=== PATIENT | female | born 1950 | race Hispanic/Latino ===

== ENCOUNTER 2023-05-16 20:45 | Emergency (ER) | payer OTHER ==
--- OUTSIDE RECORDS SUMMARY | 2023-05-16 20:50 | XMS REPORT | Continuity of Care Document ---
:1950 Author Organization [facility] t Address [address] [place] [address] Care Team Providers Name Role Phone Charli CHAVEZ, Bernard Primary Care Physician Vianney Carias RN Attending Clinician Unavailable Nayana Rolon MD Attending Clinician [phone] [facility]ending Clinician Unavailable Raj CHAVEZ, Tessy Attending Clinician Bernard Augustin MD Attending Clinician Miguelito De La Fuente MD, Isidro Alvarado Attending Clinician [phone] Benjamin Mensah MD Attending Clinician Znea Rojas MD Attending Clinician Hudson Mariscal DO Attending Clinician [phone] Viv Lucio Attending Clinician Unavailable Radha Desai DO Attending Clinician [phone] ANSHUL ABRAHAM Attending Clinician Unavailable Steph Godfrey MD Attending Clinician [phone] Starr Mckeon Attending Clinician Unavailable Adrianna Fitzgerald MA Attending Clinician Unavailable Robert MARCUS, Ceci Lorenzo Attending Clinician [phone] Dave MURDOCK, Lili Gifford Attending Clinician Unavailable NORMA NAJERA Attending Clinician Unavailable LEATHA PENA Attending Clinician Unavailable MD BERNARD AUGUSTIN Attending Clinician Unavailable BENJAMIN MENSAH Admitting Clinician Unavailable LEATHA PENA Admitting Clinician Unavailable MD BERNARD AUGUSTIN Admitting Clinician Unavailable Payers Payer Name Policy Type Policy Number Effective Date Expiration Date S ource Problems Condition Condition Condition Status Onset Resolution Last Treating Co mments Source Name Details Category Date Date Treatment Clinician Date Pneumonia Pneumonia Disease Active [facility] due to due to 03-31 COVID-19 COVID-19 00:00: Hospit a virus virus 00 l COVID-19 COVID-19 Disease Active [facility] virus virus 03-31 detected detected 00:00: Hospit a 00 l Late onset Late onset Disease Active M ethodi asthma asthma [address] [facility] 00:00: Hospita 00 l Acquired Acquired Disease Active [facility] hypothyroi hypothyroi 1-15 st dism dism 00:00: Hospita 00 l Allergic Allergic Disease Active [facility] rhinitis rhinitis 1-15 st 00:00: Hospita 00 l Diabetes Diabetes Disease Active [facility] mellitus mellitus 2-16 st 00:00: Hospita 00 l Essential Essential Disease Active Met [facility] hypertensi hypertensi 2-16 st on on 00:00: Hospita 00 l Allergies, Adverse Reactions, Alerts This patient has no known allergies or adverse reactions. Family History Family Member Diagnosis Comments Start Date Stop Date Source Natural brother Prostate cancer [facility] Natural father Kidney cancer [facility] Natural mother Alzheimer's disease [facility] Social History Social Habit Start Date Stop Date Quantity Comments Source History SDOH [facility] Std Drinks Hospit al History SDOH [facility] Binge [facility] History SDOH [facility] Comment Hospital Exposure to Not sure [facility] SARS-CoV-2 (event) Hospit al [facility] Alcohol intake 2023-03-08 2023-03-08 Lifetime [facility] 00:00:00 00:00:00 non-drinker Hospital (finding) History of Social 2023-03-08 2023-03-[address] function 00:00:00 00:00:00 Hospital Tobacco use and 2022-06-09 2022-06-09 Smokeless [facility] exposure 00:00:00 00:00:00 tobacco non-user Hospital History SDOH 2020-10-28 2020-10-28 1 [facility] Alcohol Frequency 00:00:00 00:00:00 Hospita l Sex Assigned At [birth year] [facility] Smoking Status Start Date Stop Date Source Never smoked tobacco [facility] Medications Ordered Filled Start Stop Current Ordering Indication Dosage Frequency Signature Comments Components Source Medication Medication Date Date Medication? Clinician (SIG) Name Name nitrofurant 2022- Yes [id number] 100mg Q.5D Take 1 [facility] oin, 05-12 08-[address] macrocrysta 00:00: 04:59 (100 mg Ho [facility] l-monohydra 00 :00 total) by l te, mouth 2 (Macrobid) (two) 100 MG times a capsule day for 7 days. erythromyci Yes Apply a Met hodi n 0.5% 04-[address] (ILOTYCIN) 00:00: ribbon to [facility] 5 mg/gram 00 the l (0.5 %) stiches/wo ophthalmic und 4 ointment times a day for 7 days then stop simvastatin Yes [id number] TAKE 1 [facility] (ZOCOR) 40 7-20 TABLET(40 st mg tablet 00:00: MG) BY Hospit a 00 MOUTH l DAILY metoprolol Yes [id number] TAKE 1 [facility] succinate 7-13 TABLET(50 st XL 00:00: MG) BY Hospita (TOPROL-XL) 00 MOUTH l 50 mg 24 hr DAILY tablet levothyroxi Yes [id number] TAKE 1 [facility] ne 7-13 TABLET(75 st (SYNTHROID) 00:00: MCG) BY Hos kailyn 75 mcg 00 MOUTH l tablet DAILY montelukast Yes [id number] TAKE 1 [facility] (SINGULAIR) 7-10 TABLET(10 st 10 mg 00:00: MG) BY Hospita tablet 00 MOUTH l EVERY NIGHT nitrofurant 2022- No 100mg Q.5D Take 1 Me [facility]odi oin, 6 06-[address] macrocrysta 00:00: 04:59 (100 mg [facility] l-monohydra 00 :00 total) by l te, mouth 2 (Macrobid) (two) 100 MG times a capsule day for 5 days. fluconazole 0 2023- No 150mg Take 1 Me [facility] (Diflucan) 6-18 06-[address] 150 MG 00:00: 04:59 (150 mg Hospita tablet 00 :00 total) by l mouth once for 1 dose. loratadine 0 Yes 10mg QD Take 1 [facility] di (CLARITIN) 6-12 tablet (10 st 10 mg 11:35: mg total) Hospita tablet 07 by mouth l daily. flash 0 Yes [facility] glucose 6-12 st scanning 11:35: Hospita reader 06 l (FreeStyle Aldair 14 Day Mckee) misc flash 0 Yes [facility] glucose 6-12 st sensor 11:35: Hospita (FREESTYLE 06 l ALDAIR 14 DAY SENSOR MISC) estradioL Yes [id number] .5g Q.[id number] Insert 0.5 [facility] (Estrace) 6-[id number] g into the [address] 0.01 % (0.1 00:00: 3W vagina 3 Ho spita mg/gram) 00 (three l vaginal times a cream week at 2100. Insert 0.5 g into vagina nightly x 1 wk; after one week use 3x weekly at night gabapentin 0 202- Yes 300mg Q.[id number] Take 3 [facility] (Neurontin) 5-31 05-[id number] 100 mg 00:00: 04:59 3D (300 mg Hospita capsule 00 :00 total) by l mouth 3 (three) times a day. DULoxetine Yes TAKE 1 [facility] di (CYMBALTA) 5-24 CAPSULE(60 st 60 MG 00:00: MG) BY Hospita capsule 00 MOUTH l DAILY metFORMIN 0 Yes [id number] TAKE 1 M [facility]i (GLUCOPHAGE 5-15 TABLET(100 st ) 1,000 mg 00:00: 0 MG) BY Hos kailyn tablet 00 MOUTH l TWICE DAILY WITH MEALS lisinopriL 0 Yes [id number] TAKE 1 Me [facility] (PRINIVIL) 5-04 TABLET(40 st 40 mg 00:00: [facility]ILY levothyroxi 2022- No [id number] TAKE 1 [facility] ne 01-13- TABLET(75 st (SYNTHROID) 00:00: 00:00 MCG) BY [facility] spita 75 mcg 00 :00 MOUTH l tablet DAILY simvastatin 2022- No [id number] TAKE 1 [facility] (ZOCOR) 40 01-04 TABLET(40 st mg tablet 00:00: 00:00 MG) BY [facility] ta 00 :00 MOUTH l DAILY metoprolol 2022- No [id number] TAKE 1 [facility] succinate 12-05 TABLET(50 st XL 00:00: 00:00 [facility] ([facility] 00 :00 MOUTH l 50 mg 24 hr DAILY tablet DULoxetine 2022- No TAKE 1 Meth gricelda (CYMBALTA) 12-05-24 CAPSULE(60 st 60 MG 00:00: 00:00 MG) BY [facility] capsule 00 :00 MOUTH l DAILY empaglifloz Yes [id number] 25mg QD Take 1 [facility] in 12-02 tablet (25 st (Jardiance) 00:00: mg total) H ospita 25 mg 00 by mouth l tablet daily. dulaglutide Yes [id number] 3mg Q7D Inject 0.5 [facility] (Trulicity) 3-09 mL ([address] 3 mg/0.5 mL 00:00: total) Hosp ilan subcutaneou 00 under the l s pen skin once a week. montelukast 2022- No [id number] 10mg QD Take 1 [facility] (Singulair) 12-02-10 tablet (10 s t 10 mg 00:00: 00:00 mg total) Hospit a tablet 00 :00 by mouth l nightly. ketoconazol 2022- No [id number] QD Apply Methodi e (NIZORAL) 12-[address] 2 % cream 00:00: 04:59 daily for Ho spita 00 :00 28 days. l metFORMIN 2022- No [id number] TAKE 1 [facility] (GLUCOPHAGE 2-15 05-15 TABLET(100 s t ) 1,000 mg 00:00: 00:00 0 MG) BY Ho spita tablet 00 :00 MOUTH l TWICE DAILY WITH MEALS lisinopriL 2022- No [id number] TAKE 1 M [facility]i (PRINIVIL) 11-0904 TABLET(40 st 40 mg 00:00: 00:00 MG) BY Hospita tablet 00 :00 MOUTH l DAILY Jardiance 2022- No [id number] TAKE 1 [facility] 10 mg 11-09 TABLET(10 st tablet 00:00: 00:00 MG) BY Hospita tablet 00 :00 MOUTH l DAILY nitrofurant 2022- No 100mg Q.5D Take 1 Me thodi oin, 11-[address] macrocrysta 00:00: 05:59 (100 mg Ho spita l-monohydra 00 :00 total) by l te, mouth 2 (Macrobid) (two) 100 MG times a capsule day for 7 days. levothyroxi 2022- No [id number] TAKE 1 [facility] ne 10-10-20 TABLET(75 st (SYNTHROID) 00:00: 00:00 MCG) BY Ho spita 75 mcg 00 :00 MOUTH l tablet DAILY simvastatin 2022- No [id number] TAKE 1 [facility] (ZOCOR) 40 10-10-11 TABLET(40 st mg tablet 00:00: 00:00 MG) BY [facility] ta 00 :00 MOUTH l DAILY dulaglutide 2022- No [id number] INJECT [facility] (Trulicity) 10-10 3MG(0.5ML) s t 3 mg/0.5 mL 00:00: 00:00 UNDER THE [facility] :00 SKIN ONCE l s pen A WEEK metoprolol 2021-09- No [id number] TAKE 1 [facility] succinate 11-09 TABLET(50 st XL 00:00: 00:00 MG) [facility] ([facility]OL[facility]) 00 :00 MOUTH l 50 mg 24 hr DAILY tablet DULoxetine 2021-09- No TAKE 1 Meth gricelda (CYMBALTA) 2-14 03-12 CAPSULE(60 st 60 MG 00:00: 00:00 MG) BY Hospita capsule 00 :00 MOUTH l DAILY levothyroxi 2021-09- No [id number] TAKE 1 [facility] ne 10-2415 TABLET(75 st (SYNTHROID) 00:00: 00:00 MCG) BY Ho spita 75 mcg 00 :00 MOUTH l tablet DAILY Jardiance 2021-09- No [id number] TAKE 1 [facility] 10 mg 10-09 TABLET(10 st tablet 00:00: 00:00 MG) BY Hospita tablet 00 :00 MOUTH l DAILY lisinopriL 2021-09- No [id number] TAKE 1 M ethodi (PRINIVIL) 10-09 TABLET(40 st 40 mg 00:00: 00:00 MG) BY Hospita tablet 00 :00 MOUTH l DAILY metFORMIN 2021-09- No [id number] TAKE 1 [facility] (GLUCOPHAGE 09-2815 TABLET(100 s t ) 1,000 mg 00:00: 00:00 0 MG) BY spita tablet 00 :00 MOUTH l TWICE DAILY WITH MEALS Trulicity 2021-09- No Methodi 1.5 mg/0.5 0-27 03- st mL 00:00: 00:00 Hospita subcutaneou 00 :00 l s pen simvastatin 2021-09- No [id number] TAKE 1 [facility] (ZOCOR) 40 14 15 TABLET(40 st mg tablet 00:00: 00:00 MG) BY [facility] ta 00 :00 MOUTH l DAILY DULoxetine 2021- No TAKE 1 Meth gricelda (CYMBALTA) 06-1014 CAPSULE(60 st 60 MG 00:00: 00:00 MG) BY Hospita capsule 00 :00 MOUTH l DAILY metFORMIN 2021- No [id number] 1000mg QD Take 1 [facility] (GLUCOPHAGE 06-09- tablet st ) 1,000 mg 00:00: 00:00 (1,000 mg H ospita tablet 00 :00 total) by l mouth daily with breakfast. lisinopriL 2021- No [id number] TAKE 1 M ethodi (PRINIVIL) 8-10 11-14 TABLET(40 st 40 mg 00:00: 00:00 MG) BY Hospita tablet 00 :00 MOUTH l DAILY Jardiance 2021- No [id number] TAKE 1 [facility] 10 mg 8-10 11-14 TABLET(10 st tablet 00:00: 00:00 MG) BY Hospita tablet 00 :00 MOUTH l DAILY simvastatin 2021- No [id number] TAKE 1 [facility] (ZOCOR) 40 7-05 10-14 TABLET(40 st mg tablet 00:00: 00:00 MG) BY Hospi ta 00 :00 MOUTH l DAILY ipratropium 2022- No 2{spray Q12H 2 sprays [facility] (ATROVENT) 03-25 } into each st 21 mcg 00:00: 04:59 nostril Hospita (0.03 %) 00 :00 every 12 l nasal spray (twelve) hours. azelastine 2022- No [id number] 1{spray Q.5D 1 spray [facility] (ASTELIN) 03-08 } into each st 137 mcg 00:00: 04:59 nostril 2 Hosp ilan (0.1 %) 00 :00 (two) l nasal spray times a day. Use in each nostril as directed montelukast 2022- No [id number] 10mg QD Take 1 [facility] (Singulair) 03-0809 tablet (10 s t 10 mg 00:00: 00:00 mg total) Hospit a tablet 00 :00 by mouth l nightly. metoprolol 2021- No [id number] TAKE 1 [facility] succinate 02-24 TABLET(50 st XL 00:00: 00:00 MG) BY Hospita (TOPROL-XL) 00 :00 MOUTH l 50 mg 24 hr DAILY tablet DULoxetine 2021- No TAKE 1 Meth gricelda (CYMBALTA) 02-24 CAPSULE(60 st 60 MG 00:00: 00:00 MG) BY Hospita capsule 00 :00 MOUTH l DAILY triamcinolo 2021- No Metho di ne 02-19 st (KENALOG) 00:00: 00:00 Hospita 0.1 % cream 00 :00 l levothyroxi 2021- No [id number] TAKE 1 [facility] ne 5-18 11-29 TABLET(75 st (SYNTHROID) 00:00: 00:00 MCG) BY Ho spita 75 mcg 00 :00 MOUTH l tablet DAILY baclofen 5 2021- No [id number] 5mg Q.[id number] Take 1 [facility] mg tablet 12-28 [id number] tablet (5 st 00:00: 00:00 3D mg total) Hospita 00 :00 by mouth 3 l (three) times a day as needed (muscle spasms). metFORMIN 2021- No [id number] TAKE 1 [facility] (GLUCOPHAGE 11-05 TABLET(100 s t ) 1,000 mg 00:00: 00:00 0 MG) BY Ho spita tablet 00 :00 MOUTH l TWICE DAILY WITH MEALS olopatadine 2021- No [id number] 1[drp] QD Apply 1 [facility] 0.2 % drops 11-[id number] 00:00: 00:00 eye daily. Hospit a 00 :00 l albuterol Yes [id number] 2{puff} Q4H Inhale 2 [facility] (PROAIR 2-[address] HFA) 90 00:00: every 4 Hospita mcg/actuati 00 (four) l on inhaler hours as needed for wheezing or shortness of breath. simvastatin Yes [id number] TAKE 1 [facility] (ZOCOR) 40 1-17 TABLET(40 st mg tablet 00:00: MG) BY Hospit a 00 MOUTH l DAILY Jardiance Yes [id number] TAKE 1 M [facility]i 10 mg 1-17 TABLET(10 st tablet 00:00: MG) BY Hospita tablet 00 MOUTH l DAILY lisinopriL 2020-09 Yes [id number] 40mg QD Take 1 Me thodi (PRINIVIL) 2-27 tablet (40 st 40 mg 00:00: mg total) Hospita tablet 00 by mouth l daily. loratadine 2020-09 Yes 10mg QD Take 10 mg M ethodi (CLARITIN) 2-[address] 10 mg 10:52: daily. Hospita tablet 37 l flash 2020-09 Yes [facility] glucose 2-07 st scanning 10:52: Hospita reader 37 l (FreeStyle Aldair 14 Day Mckee) misc flash 2020-09 Yes [facility] glucose 2-07 st sensor 10:52: Hospita (FREESTYLE 37 l ALDAIR 14 DAY SENSOR MIS) amoxicillin 2020-09 Yes Method i -pot 1-30 st clavulanate 00:00: Hospit a (AUGMENTIN) 00 l 875-125 mg per tablet metoprolol 2020-09 Yes [id number] TAKE 1 [facility] succinate 1-17 TABLET(50 st XL 00:00: MG) BY Hospita (TOPROL-XL) 00 MOUTH l 50 mg 24 hr DAILY tablet DULoxetine 2020-09 Yes TAKE 1 Metho di (CYMBALTA) 1-16 CAPSULE(60 st 60 MG 00:00: MG) BY Hospita capsule 00 MOUTH l DAILY levothyroxi 2020-09 Yes [id number] TAKE 1 [facility] ne 1-16 TABLET(75 st (SYNTHROID) 00:00: MCG) BY Hos kailyn 75 mcg 00 MOUTH l tablet DAILY dulaglutide 2020-09 Yes [id number] 3mg Q7D Inject 0.5 [facility] (TRULICITY) 1-09 mL ([address] 3 mg/0.5 mL 00:00: total) Hosp ilan subcutaneou 00 under the l s pen skin once a week. dulaglutide 2020-09- No [id number] 3mg Q7D Inject 0.5 [facility] (TRULICITY) 1-09 01-15 mL ([address] 3 mg/0.5 mL 00:00: 00:00 total) Hos kailyn subcutaneou 00 :00 under the l s pen skin once a week. Trulicity 2020-09- No [id number] INJECT 1.5 [facility] 1.5 mg/0.5 -02 11-[address] mL 00:00: 00:00 THE SKIN Hospita subcutaneou 00 :00 ONCE A l s pen WEEK ON TUESDAYS Jardiance 2020-09 202- No [id number] TAKE 1 [facility] 10 mg 0-17 01-17 TABLET(10 st tablet 00:00: 00:00 MG) BY Hospita tablet 00 :00 MOUTH l DAILY DULoxetine 2020- No TAKE 1 Meth gricelda (CYMBALTA) 813 11-16 CAPSULE(60 st 60 MG 00:00: 00:00 MG) BY Hospita capsule 00 :00 MOUTH l DAILY metFORMIN Yes [id number] TAKE 1 M ethodi (GLUCOPHAGE 8-04 TABLET(100 st ) 1,000 mg 00:00: 0 MG) BY Hos kailyn tablet 00 MOUTH l TWICE DAILY WITH MEALS Trulicity 2020- No [id number] INJECT 1.5 [facility] 1.5 mg/0.5 8- 11-[address] mL 00:00: 00:00 THE SKIN Hospita subcutaneou 00 :00 ONCE A l s pen WEEK Tuesdays Jardiance 2020- No [id number] TAKE 1 [facility] 10 mg 04-1317 TABLET(10 st tablet 00:00: 00:00 MG) BY Hospita tablet 00 :00 MOUTH l DAILY simvastatin 2021- No [id number] TAKE 1 [facility] (ZOCOR) 40 04-12-17 TABLET(40 st mg tablet 00:00: 00:00 MG) BY Hospi ta 00 :00 MOUTH l DAILY Trulicity 2020- No [id number] INJECT 1.5 [facility] 1.5 mg/0.5 04-03 08-[address] mL 00:00: 00:00 THE SKIN Hospita subcutaneou 00 :00 ONCE A l s pen WEEK Tuesdays lisinopriL 2020- No [id number] TAKE 1 M ethodi (PRINIVIL) 02-11-27 TABLET(40 st 40 mg 00:00: 00:00 MG) BY Hospita tablet 00 :00 MOUTH l DAILY metFORMIN 2020- No [id number] TAKE 1 [facility] (GLUCOPHAGE 5- 08-04 TABLET(100 s t ) 1,000 mg 00:00: 00:00 0 MG) BY Ho spita tablet 00 :00 MOUTH l TWICE DAILY WITH MEALS betamethaso 2020- No [id number] Q.5D Apply Methodi ne 01-19 05-[address] dipropionat 00:00: 04:59 2 (two) Ho spita e 00 :00 times a l (DIPROLENE) day for 14 0.05 % days. cream levothyroxi 2020- No [id number] 75ug QD Take 1 [facility] ne 14 11-16 tablet (75 st (SYNTHROID) 00:00: 00:00 mcg total) Hospita 75 mcg 00 :00 by mouth l tablet daily. ketoconazol 2020- No [id number] QD Apply Methodi e (NIZORAL) 12-29 04-[address] 2 % cream 00:00: 04:59 daily for Ho spita 00 :00 14 days. l triamcinolo 2020- No [id number] Q.5D Apply Methodi ne 12-29-[address] (KENALOG) 00:00: 04:59 2 (two) Hosp ilan 0.1 % cream 00 :00 times a l day for 14 days. Apply to hands fluticasone 2020- No [id number] 100ug QD 2 sprays [facility] propionate 12-23-30 ([address] (FLONASE) 00:00: 04:59 total) by Ho spita 50 00 :00 Each Nare l mcg/actuati route on nasal daily for spray 30 days. amoxicillin 2020- No [id number] 1{tbl} Q.5D Take 1 [facility] -pot -23 01-[address] clavulanate 00:00: 04:59 mouth 2 Ho spita (Augmentin) 00 :00 (two) l 875-125 mg times a per tablet day for 5 days. metoprolol 2020- No [id number] 50mg QD Take 1 [facility] succinate 10-06-17 tablet (50 st XL 00:00: 00:00 mg total) Hospita (TOPROL-XL) 00 :00 by mouth l 50 mg 24 hr daily. tablet DULoxetine 2020- No 60mg QD Take 1 Meth gricelda (CYMBALTA) 10-06 08-[address] 60 MG 00:00: 00:00 (60 mg Hospita capsule 00 :00 total) by l mouth daily. empaglifloz 2020- No [id number] 10mg QD Take 1 [facility] in 10 mg 10-06 tablet (10 st tablet 00:00: 00:00 mg total) Hospi ta tablet 00 :00 by mouth l daily. simvastatin 2020- No [id number] 40mg QD Take 1 [facility] (ZOCOR) 40 10-0618 tablet (40 st mg tablet 00:00: 00:00 mg total) Ho spita 00 :00 by mouth l daily. dulaglutide 2020- No [id number] 1.5mg Q7D Inject 1.5 [facility] (Trulicity) 10-06 07-[address] 1.5 mg/0.5 00:00: 00:00 the skin Ho spita mL pen 00 :00 once a l injector week. Tuesday lisinopriL 2020- No [id number] 40mg QD Take 1 M [facility]i (PRINIVIL) 10-06 tablet (40 st 40 mg 00:00: 00:00 mg total) Hospit a tablet 00 :00 by mouth l daily. levothyroxi 2020- No [id number] 75ug QD Take 1 Method[facility] ne 10-0614 tablet (75 st (SYNTHROID) 00:00: 00:00 mcg total) Hospita 75 mcg 00 :00 by mouth l tablet daily. metFORMIN 2020- No [id number] TAKE 1 [facility] (GLUCOPHAGE 10-05 05-02 TABLET(100 s t ) 1,000 mg 00:00: 00:00 0 MG) BY Ho spita tablet 00 :00 MOUTH l TWICE DAILY WITH MEALS keTOROlac 2019-09- No Instill 1 Me thodi (ACULAR LS) 2 04-[address] 0.4 % 00:00: 00:00 the right Hospit a ophthalmic 00 :00 eye 2 l solution times daily and taper as directed by physician. triamcinolo 2020- No Q.5D Apply Meth gricelda ne 05-15 04-[address] (KENALOG) 00:00: 00:00 2 (two) Hosp ilan 0.1 % cream 00 :00 times a l day. Immunizations Ordered Immunization Filled Immunization Date Status Commen ts Source Name Name Zoster 2022-10-07 Completed [facility] [place] M[place] 2022-07-07 Completed [facility] BIVALENT BOOSTER 00:00:00 Hospital VACCINATION FLUZONE HIGH-DOSE PF 2022-06-09 [facility]22-04-09 Completed Met [facility] VACCINATION 00:00:00 Hospital Pneumococcal 2022-04-09 Completed [facility] 20-valent Conjugate 00:00:00 Hospi olivia Vaccine [facility] COVID-19 MRNA 2021-08-12 Completed Met [facility] VACCINATION 00:00:00 Hospital FLUZONE HIGH-DOSE PF 2021-06-26 Completed Meth odist 00:00:00 Hospital MODERNA COVID-19 MRNA 2021-01-27 Completed Met hodist VACCINATION 00:00:00 [facility] MODERNA COVID-19 MRNA 2021-01-27 Completed Met [facility] VACCINATION 00:00:00 [facility] M[facility] 2020-12-30 Completed Met [facility] VACCINATION 00:00:00 [facility] COVID-19 MRNA 2020-12-30 Completed Met [facility]ist VACCINATION 00:00:00 Hospital Pneumococcal 2020-10-06 Completed [facility] Polysaccharide 00:00:00 Hospital Pneumococcal 2020-10-06 Completed [facility] Polysaccharide 00:00:00 [facility] FLUZONE HIGH-DOSE PF 2020-05-31 Completed Meth odist 00:00:00 [facility] FLUZONE HIGH-DOSE PF 2020-05-31 Completed Meth odist 00:00:00 Hospital Vital Signs Vital Name Observation Time Observation Value Comments Source Systolic blood 2023-03-07 16:34:00 132 mm[Hg] [facility] pressure Diastolic blood 2023-03-07 16:34:00 79 mm[Hg] [facility] pressure Heart rate 2023-03-07 16:34:00 77 /[facility] height 2023-03-07 16:34:00 162.6 cm [facility] Body weight 2023-03-07 16:34:00 [facility]26 [facility] 2023-03-07 16:34:00 29.87 kg/m2 [facility] Body temperature 2023-02-23 15:33:00 37.06 Deborah Meth [facility]ist [facility] Respiratory rate 2023-02-23 15:33:00 18 /min [facility] Oxygen saturation in 2022-12-02 14:19:00 96 /min [facility] Arterial blood by Pulse oximetry Systolic blood 2021-09-01 16:51:00 139 mm[Hg] [facility] pressure Diastolic blood 2021-09-01 16:51:00 78 mm[Hg] [facility] pressure Heart rate 2021-09-01 16:51:00 73 /min [facility] Body temperature 2021-09-01 16:51:00 37.06 Deborah [facility] Body height 2021-09-01 16:51:00 160 cm [facility] Body weight 2021-09-01 16:51:00 81.194 kg [facility] BMI 2021-09-01 16:51:00 31.71 kg/m2 [facility] Oxygen saturation in 2021-09-01 16:51:00 96 /min [facility] Arterial blood by Pulse oximetry Procedures Procedure Date / Time Performing Clinician Source Performed URINE CULTURE 2023-05-12 17:06:00 Nayana Rolon [facility] POC URINALYSIS DIPSTICK 2023-05-12 16:42:33 Ольга [facility] Mary AUTOMATED VISUAL FIELD, 2023-03-08 16:38:06 [facility] EXTENDED - OU - BOTH EYES AUTOMATED VISUAL FIELD, 2023-03-08 16:37:56 [facility] EXTENDED - OU - BOTH EYES URINE CULTURE, 2023-03-07 18:43:00 Nayana Rolon spital COMPREHENSIVE (BERNADINE Mary HIST) URINALYSIS SCREEN AND 2023-03-07 18:43:[address] [facility] MICROSCOPY, WITH REFLEX Mary TO CULTURE MICROSCOPIC EXAMINATION 2023-03-07 18:43[facility]00 [id number] 2023-03-07 16:39:08 Nayana Rolon spital Mary POC URINALYSIS DIPSTICK 2023-03-07 16:38:42 Ольаг [facility] Mary MRI CERVICAL SPINE W WO 2023-03-03 23:45:00 [facility] CONTRAST [facility] MRI IAC W WO CONTRAST 2023-03-03 23:15:00 [facility] BASIC METABOLIC PANEL 2022-12-02 15:16:00 [facility] POC GLYCOSYLATED 2022-12-02 14:48:34 [facility] HEMOGLOBIN (HGB A1C) US PELVIS TRANSABD W 2022-11-19 21:00:00 [facility] TRANSVAG URINE CULTURE, 2022-10-28 19:52:00 [facility] COMPREHENSIVE (BERNADINE HIST) URINALYSIS SCREEN AND 2022-10-28 19:52:00 [facility] MICROSCOPY, WITH REFLEX TO CULTURE MICROSCOPIC EXAMINATION 2022-10-28 19:52:00 [facility] PAP + PAP DEPENDENT HPV 2022-10-28 17:46:00 [facility] MAMMO BREAST SCREEN 2022-08-12 17:36:00 [facility] TOMOSYNTHESIS BILATERAL CBC WITH PLATELET AND 2022-06-09 14:57:00 [facility] DIFFERENTIAL COMPREHENSIVE METABOLIC 2022-06-09 14:57:00 [facility] PANEL LIPID PANEL 2022-06-09 14:57:00 [facility] spital MICROALBUMIN / CREATININE 2022-06-09 14:57:00 [facility] URINE RATIO POC GLYCOSYLATED 2022-06-09 14:46:16 [facility] HEMOGLOBIN (HGB A1C) POC GLYCOSYLATED 2021-09-01 17:10:00 [facility] HEMOGLOBIN (HGB A1C) BASIC METABOLIC PANEL 2021-08-25 20:43:00 [facility] MRI BRAIN W WO CONTRAST 2021-08-17 22:22:00 [facility] MRI CERVICAL SPINE W WO 2021-08-17 22:00:00 [facility] CONTRAST [facility] MAMMO BREAST SCREEN 2021-08-13 22:02:25 Bernard Augustin [facility] TOMOSYNTHESIS BILATERAL NM BRAIN SPECT W I 123 2021-08-11 20:28:00 [facility] o [facility] DATSCAN [facility] BASIC METABOLIC PANEL 2021-08-04 20:57:00 [facility] 2021-06-26 21:00:32 Bernard Augustin spital HEPATITIS C ANTIBODY 2021-06-02 15:47:00 [facility] HIV 1/2 ANTIGEN/ANTIBODY, 2021-06-02 15:47:00 [facility] FOURTH GENERATION W/RFL MICROALBUMIN / CREATININE 2021-06-02 15:47:00 [facility] URINE RATIO CBC WITH PLATELET AND 2021-06-02 15:47:00 [facility] DIFFERENTIAL COMPREHENSIVE METABOLIC 2021-06-02 15:47:00 CarefreeBernard kee [facility] PANEL HEMOGLOBIN A1C 2021-06-02 15:47:00 Bernard Augustin Ho [facility]ital LIPID PANEL 2021-06-02 15:47:00 Bernard Augustin Ho spital THYROID STIMULATING 2021-06-02 15:47[facility]00 [facility] 2021-06-02 15:47:00 Bernard Augustin Ho spital THYROID STIMULATING 2021-01-05 14:49:00 Bernard Augustin [facility] HORMONE T4, FREE 2021-01-05 14:49:00 Bernard Augustin Ho spital POC GLYCOSYLATED 2021-01-05 14:15:00 Bernard Augustin [facility] HEMOGLOBIN (HGB A1C) Plan of Care Planned Activity Planned Date Details Comments Source Future Scheduled 2023-05-16 Screening for [facility] Test 07:02:22 malignant neoplasm of colon (procedure) [code = 868664234] Future Scheduled 2023-05-16 Screening for [facility] Test 07:02:22 malignant neoplasm of colon (procedure) [code = 830772601] Future Scheduled 2023-05-16 Screening for [facility] Test 07:02:22 malignant neoplasm of colon (procedure) [code = 228736123] Future Scheduled 2023-05-16 DIABETIC FOOT EXAM [facility] Test 07:02:22 [code = DIABETIC FOOT EXAM] Future Scheduled 2023-05-16 Screening for [facility] Test 07:02:22 malignant neoplasm of colon (procedure) [code = 620598368] Future Scheduled 2023-05-16 Screening for [facility] Test 07:02:22 malignant neoplasm of colon (procedure) [code = 119977469] Future Scheduled 2023-05-16 COVID-19 VACCINE (6 - [facility] Test 07:02:22 Moderna series) [code = COVID-19 VACCINE (6 - Moderna series)] Future Scheduled 2023-05-16 SHINGLES VACCINES (2 Met [facility] Test 07:02:22 of 2) [code = SHINGLES VACCINES (2 of 2)] Future Scheduled 2023-05-16 INFLUENZA VACCINE [facility] Test 07:02:22 [code = INFLUENZA VACCINE] Future Scheduled 2023-05-16 BREAST CANCER [facility] Test 07:02:22 SCREENING [code = BREAST CANCER SCREENING] Future Scheduled 2023-05-16 DIABETES: RETINAL EYE [facility] Test 07:02:22 EXAM [code = DIABETES: RETINAL EYE EXAM] Future Scheduled 2021-10-27 DIABETIC FOOT EXAM [facility] Test 10:16:21 [code = DIABETIC FOOT EXAM] Future Scheduled 2021-10-27 COLONOSCOPY SCREENING [facility] Test 10:16:21 [code = COLONOSCOPY SCREENING] Future Scheduled 2021-10-27 SHINGLES VACCINES (#1) [facility] Test 10:16:21 [code = SHINGLES VACCINES (#1)] Future Scheduled 2021-10-27 URINE MICROALBUMIN [facility] Test 10:16:21 [code = URINE MICROALBUMIN] Future Scheduled 2021-10-27 DIABETES: RETINAL EYE [facility] Test 10:16:21 EXAM [code = DIABETES: RETINAL EYE EXAM] Future Scheduled 2021-10-27 BREAST CANCER [facility] Test 10:16:21 SCREENING [code = BREAST CANCER SCREENING] Encounters Start End Encounter Admission Attending Care Care Encounter Source Date/Time Date/Time Type Type Clinicians Facility Department ID 2023-05-16 2023-05-16 Telephone Jv, 1.2.840.1 [id number] Methodi 00:00:00 00:00:[address] 3.430.2.7 Hospit a .3.743769 l .8 2023-05-12 2023-05-12 Procedure Ольга, 1.2.840.1 [id number] 21 [id number] Methodi 11:30:00 13:42:54 visit Nayana 58691.1.[address] Mary 3.430.2.7 Hospit a .3.207704 l .8 2023-05-12 2023-05-12 Outpatient ОЛЬГА, [facility] [id number] Ozan 00:00:00 00:00:00 NAYANA [address] 2023-05-10 2023-05-10 Patient Rahul, 1.2.840.1 [id number] 72230 Methodi 00:00:00 00:00:00 Outreach Timmy 60301.1.[address] 3.430.2.7 Hospit a .3.540080 l .8 2023-04-29 2023-04-29 Office Raj, 1.2.840.1 [id number] 3943 Methodi 10:20:00 10:29:58 Visit Tessy 37202.1.[address] 3.430.2.7 Hospit a .3.792281 l .8 2023-04-29 2023-04-29 Outpatient RAJ, [facility] [id number] 006 Ozan 00:00:00 00:00:00 TESSY [address] 2023-04-21 2023-04-21 Procedure Raj, 1.2.840.1 [id number] 2100 [id number] Methodi 10:00:00 10:53:50 visit Tessy 25464.1.[address] 3.430.2.7 Hospit a .3.910441 l .8 2023-04-21 2023-04-21 [facility] [id number] Ozan 00:00:00 00:00:00 TESSY [address] 2023-04-13 2023-04-13 Refill Carefree, 1.2.840.1 [id number] 82980 05648 Methodi 00:00:00 00:00:[address] 3.430.2.7 Hospit a .3.318457 l .8 2023-04-07 2023-04-07 Refill Carefree, 1.2.840.1 [id number] 08284 Methodi 00:00:00 00:00:[address] 3.430.2.7 Hospit a .3.186650 l .8 2023-04-03 2023-04-03 Refill Charli, 1.2.840.1 [id number] 66817 Methodi 00:00:00 00:00:[address] 3.430.2.7 Hospit a .3.862162 l .8 2023-03-23 2023-03-23 Telephone Ольга, 1.2.840.1 [id number] 21 [id number] Methodi 00:00:00 00:00:[address] Mary 3.430.2.7 Hospit a .3.365031 l .8 2023-03-18 2023-03-18 Telephone Ольга, 1.2.840.1 [id number] 21 [id number] Methodi 00:00:00 00:00:[address] Mary 3.430.2.7 Hospit a .3.398264 l .8 2023-03-14 2023-03-14 Refill Carefree, 1.2.840.1 [id number] 73948 88743 Methodi 00:00:00 00:00:[address] 3.430.2.7 Hospit a .3.977962 l .8 2023-03-13 2023-03-13 Refill Carefree, 1.2.840.1 [id number] 16110 83322 Methodi 00:00:00 00:00:[address] 3.430.2.7 Hospit a .3.687745 l .8 2023-03-13 2023-03-13 Telephone Ольга, 1.2.840.1 [id number] 21 [id number] Methodi 00:00:00 00:00:[address] Mary 3.430.2.7 Hospit a .3.507502 l .8 2023-03-12 2023-03-12 Telephone Ольга, 1.2.840.1 [id number] 21 [id number] Methodi 00:00:00 00:00:[address] Mary 3.430.2.7 Hospit a .3.351096 l .8 2023-03-08 2023-03-08 Office Raj, 1.2.840.1 [id number] 408719 2406 Methodi 10:20:00 11:40:00 Visit Tessy 85587.1.[address] 3.430.2.7 Hospit a .3.802041 l .8 2023-03-08 2023-03-08 Outpatient RAJ, [facility] [id number] 279 Ozan 00:00:00 00:00:00 TESSY [address] 2023-03-07 2023-03-07 Office Ольга, 1.2.840.1 [id number] 2100 [id number] Methodi 11:30:00 12:23:17 Visit Nayana 75091.1.[address] Mary 3.430.2.7 Hospit a .3.856244 l .8 2023-03-07 2023-03-07 Refill Carefree, 1.2.840.1 [id number] 99834 94166 Methodi 00:00:00 00:00:[address] 3.430.2.7 Hospit a .3.917049 l .8 2023-03-07 2023-03-07 Refill Carefree, 1.2.840.1 [id number] 71460 50853 Methodi 00:00:00 00:00:[address] 3.430.2.7 Hospit a .3.402493 l .8 2023-03-07 2023-03-07 Travel 1.2.840.1 1.2.946.545 4767 754385 Methodi 00:00:00 00:00:[address] 3.430.2.7 0.2.7.3.698 Ho spita .3.394415 084.8 l .8 2023-03-07 2023-03-07 Outpatient [facility] 32294 [id number] Ozan 00:00:00 00:00:00 NAYANA [address] 2023-03-03 2023-03-03 [facility] 1.2.840.1 [id number] 02352 Methodi 16:21:25 23:59:00 Encounter Sudhakar Ivo 36822.1.[address] [place] 3.430.2.7 Hospi ta .3.024769 l .8 2023-03-03 2023-03-03 [facility] 1.2.840.1 [id number] 42838 Methodi 16:21:12 23:59:00 Encounter Sudhakar Ivo 83125.1.[address] [place] 3.430.2.7 Hospi ta .3.098050 l .8 2023-03-03 2023-03-03 Outpatient [facility] [id number] Ozan 00:00:00 00:00:00 SUDHAKAR, ANDREZO [address] 2023-03-03 2023-03-03 Travel 1.2.840.1 1.2.360.639 6666 622665 Methodi 00:00:00 00:00:[address] 3.430.2.7 0.2.7.3.698 Ho spita .3.160648 084.8 l .8 2023-03-03 2023-03-03 Outpatient [place] [facility] [id number] Ozan 00:00:00 00:00:00 ISIDRO DE LA FUENTE [address] 2023-03-01 2023-03-01 Travel 1.2.840.1 1.2.709.135 8408 052198 Methodi 00:00:00 00:00:[address] 3.430.2.7 0.2.7.3.698 Ho spita .3.826894 084.8 l .8 2023-02-23 2023-02-23 Office [place] 1.2.840.1 [id number] 5458 Methodi 10:30:00 11:35:34 Visit Isidro De La Fuente 79078.1.[address] [place] 3.430.2.7 Hospi ta .3.169490 l .8 2023-02-23 2023-02-23 Outpatient [place] [facility] [id number] 642 Ozan 00:00:00 00:00:00 [facility]ID[facility] [address] [facility] 2023-02-23 2023-02-23 Travel 1.2.840.1 1.2.365.852 0982 064949 Methodi 00:00:00 00:00:[address] 3.430.2.7 0.2.7.3.698 Ho spita .3.177641 084.8 l .8 2023-02-17 2023-02-17 Travel 1.2.840.1 1.2.546.587 7626 481481 Methodi 00:00:00 00:00:[address] 3.430.2.7 0.2.7.3.698 Ho spita .3.862277 084.8 l .8 2023-02-16 2023-02-16 Refill Charli, 1.2.840.1 [id number] 00991 75380 Methodi 00:00:00 00:00:[address] 3.430.2.7 Hospit a .3.356660 l .8 2023-02-14 2023-02-14 Travel 1.2.840.1 1.2.784.510 5347 193868 Methodi 00:00:00 00:00:[address] 3.430.2.7 0.2.7.3.698 Ho spita .3.271686 084.8 l .8 2023-02-06 2023-02-06 Refill Charli, 1.2.840.1 [id number] 73277 09758 Methodi 00:00:00 00:00:[address] 3.430.2.7 Hospit a .3.949755 l .8 2023-02-01 2023-02-01 Office Mensah, 1.2.840.1 [id number] 8979 Methodi 14:30:00 14:52:41 Visit Benjamin 84256.1.[address] [place] 3.430.2.7 Hospit a .3.551246 l .8 2023-02-01 2023-02-01 Outpatient [facility] [id number] 389 Ozan 00:00:00 00:00:[address] BENJAMIN [address] 2023-01-27 2023-01-27 Refill Carefree, 1.2.840.1 [id number] 35413 07884 Methodi 00:00:00 00:00:[address] 3.430.2.7 Hospit a .3.304955 l .8 2023-01-13 2023-01-13 Refill Carefree, 1.2.840.1 [id number] 39769 69541 Methodi 00:00:00 00:00:[address] 3.430.2.7 Hospit a .3.818350 l .8 2023-01-04 2023-01-04 Refill Carefree, 1.2.840.1 [id number] 61580 43833 Methodi 00:00:00 00:00:[address] 3.430.2.7 Hospit a .3.225032 l .8 2022-12-05 2022-12-05 Orders Charli, 1.2.840.1 [id number] 28356 73945 Methodi 00:00:00 00:00:00 Only Bernard 99994.1.[address] 3.430.2.7 Hospit a .3.578612 l .8 2022-12-05 2022-12-05 Refill Carefree, 1.2.840.1 [id number] 82273 52639 Methodi 00:00:00 00:00:[address] 3.430.2.7 Hospit a .3.983084 l .8 2022-12-02 2022-12-02 Office Carefree, 1.2.840.1 [id number] 55992 33834 Methodi 08:30:00 09:12:38 Visit Bernard 16817.1.[address] 3.430.2.7 Hospit a .3.793974 l .8 2022-12-02 2022-12-02 Outpatient [facility] [id number] Ozan 00:00:00 00:00:00 BERNARD [address] 2022-11-22 2022-11-22 Orders Pirics, 1.2.840.1 [id number] 8503 Methodi 00:00:00 00:00:00 Only Zena Caceres 03568.1.1 436 s t 3.430.2.7 Hospit a .3.761800 l .8 2022-11-19 2022-11-19 Hospital Pirics, 1.2.840.1 [id number] 23764 64458 Methodi 13:45:00 23:59:00 Encounter Zena Caceres 65678.1.[address] 3.430.2.7 Hospit a .3.616118 l .8 2022-11-19 2022-11-19 Outpatient PIRICS, [facility] [id number] 643 Ozan 00:00:00 00:00:00 ZENA [address] 2022-11-19 2022-11-19 Travel 1.2.840.1 1.2.646.402 3012 653646 Methodi 00:00:00 00:00:[address] 3.430.2.7 0.2.7.3.698 Ho spita .3.783431 084.8 l .8 2022-11-10 2022-11-10 Refill Charli, 1.2.840.1 [id number] 79291 Methodi 00:00:00 00:00:[address] 3.430.2.7 Hospit a .3.643282 l .8 2022-11-09 2022-11-09 Refill Charli, 1.2.840.1 [id number] 09684 Methodi 00:00:00 00:00:[address] 3.430.2.7 Hospit a .3.859248 l .8 2022-11-05 2022-11-05 Orders Pirics, 1.2.840.1 [id number] 692829 2961 Methodi 00:00:00 00:00:00 Only Zena Caceres 77902.1.1 826 s t 3.430.2.7 Hospit a .3.388750 l .8 2022-10-28 2022-10-28 Office Pirics, 1.2.840.1 [id number] 972458 8961 Methodi 10:30:00 11:00:00 Visit Zena Morris 52666.1.1 182 s t 3.430.2.7 Hospit a .3.861856 l .8 2022-10-28 2022-10-28 Outpatient INGA, [facility] [id number] 241 Ozan 00:00:00 00:00:00 ZENA [address] [facility] 2022-10-28 2022-10-28 Travel 1.2.840.1 1.2.655.680 0217 238666 Methodi 00:00:00 00:00:[address] 3.430.2.7 0.2.7.3.698 Ho spita .3.623437 084.8 l .8 2022-10-08 2022-10-08 Refill Loida, 1.2.840.1 [id number] 651 [id number] Methodi 00:00:00 00:00:00 [place] Carlos 45488.1.[address] 3.430.2.7 Hospit a .3.155820 l .8 2022-10-08 2022-10-08 Refill Carefree, 1.2.840.1 [id number] 04402 75244 Methodi 00:00:00 00:00:[address] 3.430.2.7 Hospit a .3.481815 l .8 2022 2022 Office [place] 1.2.840.1 [id number] 115451 5210 Methodi 12:30:00 12:54:34 Visit Isidro De La Fuente 78123.1.[address] [place] 3.430.2.7 Hospi ta .3.483242 l .8 2022 2022 Outpatient [place] [facility] [id number] 234 Ozan 00:00:00 00:00:00 MEAGHANROSALINE ISIDRO [address] 2022 2022 Travel 1.2.840.1 1.2.799.503 9210 830377 Methodi 00:00:00 00:00:[address] 3.430.2.7 0.2.7.3.698 Ho spita .3.984226 084.8 l .8 2022-09-09 2022-09-09 Telephone Carefree, 1.2.840.1 [id number] 706 [id number] Methodi 00:00:00 00:00:[address] 3.430.2.7 Hospit a .3.158999 l .8 2022-09-07 2022-09-07 Refill Carefree, 1.2.840.1 [id number] 08776 Methodi 00:00:00 00:00:[address] 3.430.2.7 Hospit a .3.378956 l .8 2022-09-01 2022-09-01 [place] Lucio, 1.2.840.1 [id number] 2099 332875 Methodi 00:00:00 00:00:[address] 3.430.2.7 Hospit a .3.204153 l .8 2022-09-01 2022-09-01 Travel 1.2.840.1 1.2.787.896 9773 853045 Methodi 00:00:00 00:00:[address] 3.430.2.7 0.2.7.3.698 Ho spita .3.336230 084.8 l .8 2022-08-23 2022-08-23 [facility] 1.2.840.1 [id number] 86139 75301 Methodi 00:00:00 00:00:[address] 3.430.2.7 Hospit a .3.335461 l .8 2022-08-12 2022-08-12 [facility] 1.2.840.1 [id number] 2100 620604 Methodi 10:30:00 23:59:00 Encounter Bernard 60155.1.[address] 3.430.2.7 Hospit a .3.178650 l .8 2022-08-12 2022-08-12 [facility] [id number] 0490 Ozan 00:00:00 00:00:00 BERNARD [address] 2022-08-12 2022-08-12 Travel 1.2.840.1 1.2.663.769 4890 068018 Methodi 00:00:00 00:00:[address] 3.430.2.7 0.2.7.3.698 Ho spita .3.730692 084.8 l .8 2022-08-10 2022-08-10 Patient Rahul, 1.2.840.1 [id number] 80809 47794 Methodi 00:00:00 00:00:00 Outreach Timmy 39820.1.[address] 3.430.2.7 Hospit a .3.133213 l .8 2022-08-09 2022-08-09 Refill Carefree, 1.2.840.1 [id number] 90473 Methodi 00:00:00 00:00:[address] 3.430.2.7 Hospit a .3.033763 l .8 2022-08-02 2022-08-02 Travel 1.2.840.1 1.2.514.817 3939 446154 Methodi 00:00:00 00:00:[address] 3.430.2.7 0.2.7.3.698 Ho spita .3.490651 084.8 l .8 2022-07-29 2022-07-29 Refill Carefree, 1.2.840.1 [id number] 05954 Methodi 00:00:00 00:00:[address] 3.430.2.7 Hospit a .3.073482 l .8 2022-07-09 2022-07-09 Refill Giselle, 1.2.840.1 [id number] 59751 Methodi 00:00:00 00:00:[address] Violeta 3.430.2.7 Hosp ilan .3.522092 l .8 2022-07-09 2022-07-09 Refill Giselle, 1.2.840.1 [id number] 21001 34700 Methodi 00:00:00 00:00:[address] Violeta 3.430.2.7 Hosp ilan .3.973946 l .8 2022-06-10 2022-06-10 Refill Carefree, 1.2.840.1 [id number] 80312 55181 Methodi 00:00:00 00:00:[address] 3.430.2.7 Hospit a .3.339104 l .8 2022-06-09 2022-06-09 Office Carefree, 1.2.840.1 823351552 12495 83204 Methodi 09:00:00 09:57:03 Visit Bernard 63872.1.[address] 3.430.2.7 Hospit a .3.048596 l .8 2022-06-09 2022-06-09 Outpatient CHARLI, [facility] [id number] Ozan 00:00:00 00:00:00 BERNARD [address] 2022-05-27 2022-05-27 Patient Rahul, 1.2.840.1 [id number] 97247 00795 Methodi 00:00:00 00:00:00 Outreach Timmy 38239.1.[address] 3.430.2.7 Hospit a .3.743904 l .8 2022-05-23 2022-05-23 Orders Carefree, 1.2.840.1 [id number] 91612 61078 Methodi 00:00:00 00:00:00 Only Bernard 94766.1.[address] 3.430.2.7 Hospit a .3.685899 l .8 2022-03-25 2022-03-25 Outpatient LEIGH, ANSHUL [facility] 035 [id number] Ozan 00:00:00 00:00:[address] 2022-03-08 2022-03-08 Outpatient CHARLI, [facility] [id number] 7355 Ozan 00:00:00 00:00:00 BERNARD [address] 2022-01-26 2022-01-26 Outpatient MENSAH, [facility] [id number] 481 Ozan 00:00:00 00:00:00 BENJAMIN [address] 2021-12-28 2021-12-28 Outpatient [facility] [id number] 319 Ozan 00:00:00 00:00:[address] 2021-12-28 2021-12-28 Outpatient [facility] [id number] 414 [place]zan 00:00:00 00:00:[address] 2021-12-25 2021-12-25 Outpatient [facility] [id number] 305 [place]zan 00:00:00 00:00:[address] 2021-11-23 2021-11-23 Outpatient [facility] 00:00:00 00:00:00 TZI-[id number] 10 2021-11-04 2021-11-04 Outpatient CHARLI, [facility] [id number] 2031 Ozan 00:00:00 00:00:00 BERNARD [address] 2021-11-03 2021-11-03 Outpatient [facility] [id number] 634 Ozan 00:00:00 00:00:[address] 2021-10-21 2021-10-21 Travel 1.2.840.1 1.2.504.621 2892 650785 Methodi 00:00:00 00:00:[address] 3.430.2.7 0.2.7.3.698 Ho spita .3.492310 084.8 l .8 2021-10-17 2021-10-17 Transcribe Godfrey, 1.2.840.1 [id number] 400 [id number] Methodi 00:00:00 00:00:00 Orders Steph 54425.1.[address] [place] 3.430.2.7 Hosp ilan .3.176660 l .8 2021-10-11 2021-10-11 Refill Charli, 1.2.840.1 [id number] 84927 61705 Methodi 00:00:00 00:00:[address] 3.430.2.7 Hospit a .3.133203 l .8 2021-09-30 2021-09-30 Patient Mike, 1.2.840.1 [id number] 253 [id number] Methodi 00:00:00 00:00:00 Outreach Starr L [address]81.1.[address] 3.430.2.7 Hospit a .3.482981 l .8 2021-09-28 2021-09-28 Patient Rahul, 1.2.840.1 [id number] 52311 13350 Methodi 00:00:00 00:00:00 Outreach Timmy 04286.1.[address] 3.430.2.7 Hospit a .3.433717 l .8 2021-09-22 2021-09-22 Travel 1.2.840.1 1.2.666.100 6304 621465 Methodi 00:00:00 00:00:[address] 3.430.2.7 0.2.7.3.698 Ho spita .3.670587 084.8 l .8 2021-09-21 2021-09-21 Refill Carefree, 1.2.840.1 [id number] 67659 Methodi 00:00:00 00:00:[address] 3.430.2.7 Hospit a .3.369296 l .8 2021-09-01 2021-09-01 Office Carefree, 1.2.840.1 [id number] 50261 19066 Methodi 10:18:13 11:22:02 Visit Bernard 01534.1.[address] 3.430.2.7 Hospit a .3.309193 l .8 2021-08-25 2021-08-25 Orders [place], 1.2.840.1 [id number] 90643 Methodi 00:00:00 00:00:00 Only Bernard 88202.1.[address] 3.430.2.7 Hospit a .3.345437 l .8 2021-08-17 2021-08-17 [facility] 1.2.840.1 [id number] 73392 Methodi 14:48:02 23:59:00 Encounter Isidro De La Fuente 91256.1.[address] [place] 3.430.2.7 Hospi ta .3.771702 l .8 2021-08-17 2021-08-17 [facility] 1.2.840.1 [id number] 21001 70981 Methodi 14:47:44 14:47:44 Isidro Alonzo 49496.1.[address] [place] 3.430.2.7 Hospi ta .3.553042 l .8 2021-08-17 2021-08-17 Travel 1.2.840.1 1.2.826.134 1952 384569 Methodi 00:00:00 00:00:[address] 3.430.2.7 0.2.7.3.698 Ho spita .3.425282 084.8 l .8 2021-08-16 2021-08-16 [facility], 1.2.840.1 [id number] 892 [id number] Methodi 00:00:00 00:00:[address] 3.430.2.7 Hospit a .3.349730 l .8 2021-08-13 2021-08-13 [facility], 1.2.840.1 [id number] 2099 178576 Methodi 14:30:00 23:59:00 Encounter Bernard 74406.1.[address] 3.430.2.7 Hospit a .3.162538 l .8 2021-08-13 2021-08-13 Travel 1.2.840.1 1.2.617.092 8690 120858 Methodi 00:00:00 00:00:[address] 3.430.2.7 0.2.7.3.698 Ho spita .3.718758 084.8 l .8 2021-08-12 2021-08-12 Refill [place], 1.2.840.1 [id number] 94561 Methodi 00:00:00 00:00:[address] 3.430.2.7 Hospit a .3.108103 l .8 2021-08-11 2021-08-11 [facility] 1.2.840.1 [id number] 38612 Methodi 13:15:00 23:59:00 Encounter Isidro De La Fuente 43366.1.[address] [place] 3.430.2.7 Hospi ta .3.903574 l .8 2021-08-11 2021-08-11 [facility] 1.2.840.1 [id number] 01840 76626 Methodi 09:00:00 13:14:00 Encounter Isidro De La Fuente 59438.1.[address] [place] 3.430.2.7 Hospi ta .3.709741 l .8 2021-08-11 2021-08-11 Travel 1.2.840.1 1.2.618.813 7435 032849 Methodi 00:00:00 00:00:[address] 3.430.2.7 0.2.7.3.698 Ho spita .3.624787 084.8 l .8 2021-08-10 2021-08-10 Refill Charli, 1.2.840.1 [id number] 43232 01113 Methodi 00:00:00 00:00:[address] 3.430.2.7 Hospit a .3.710275 l .8 2021-08-05 2021-08-05 Office Charli, Bernard 1.2.840.1 [id number] Methodi 09:20:25 10:19:59 Visit Isidro Sparks 45886.1.[address] 3.430.2.7 Hospit a .3.798082 l .8 2021-08-04 2021-08-04 Office Charli, 1.2.840.1 [id number] 69628 53747 Methodi 13:26:56 14:04:36 Visit Bernard 00815.1.[address] 3.430.2.7 Hospit a .3.686373 l .8 2021-08-04 2021-08-04 Travel 1.2.840.1 1.2.969.574 6999 535386 Methodi 00:00:00 00:00:[address] 3.430.2.7 0.2.7.3.698 Ho spita .3.906051 084.8 l .8 2021-08-03 2021-08-03 Travel 1.2.840.1 1.2.822.490 2347 234599 Methodi 00:00:00 00:00:[address] 3.430.2.7 0.2.7.3.698 Ho spita .3.022538 084.8 l .8 2021-07-28 2021-07-28 Refill Giselle, 1.2.840.1 [id number] 11995 Methodi 00:00:00 00:00:[address] [place] 3.430.2.7 Hosp ilan .3.159840 l .8 2021-07-24 2021-07-24 Telephone Charli, 1.2.840.1 [id number] 437 [id number] Methodi 00:00:00 00:00:[address] 3.430.2.7 Hospit a .3.810657 l .8 2021-07-23 2021-07-23 Telephone [place], 1.2.840.1 [id number] 439 [id number] Methodi 00:00:00 00:00:[address] 3.430.2.7 Hospit a .3.167965 l .8 2021-07-12 2021-07-12 Telephone [place], 1.2.840.1 [id number] 326 [id number] Methodi 00:00:00 00:00:[address] 3.430.2.7 Hospit a .3.473855 l .8 2021-07-12 2021-07-12 Refill [place], 1.2.840.1 [id number] 36787 Methodi 00:00:00 00:00:[address] 3.430.2.7 Hospit a .3.975429 l .8 2021-06-26 2021-06-26 [facility], 1.2.840.1 [id number] 2099 289450 Methodi 15:15:00 23:59:00 Encounter Bernard [address]253.1.[address] 3.430.2.7 Hospit a .3.081834 l .8 2021-06-26 2021-06-26 [facility], 1.2.840.1 2099 439768 Methodi 15:00:00 15:14:00 Encounter Bernard 9[address]69.1.[address] 3.430.2.7 Hospit a .3.077667 l .8 2021-06-26 2021-06-26 Travel 1.2.840.1 1.2.830.746 5073 808627 Methodi 00:00:00 00:00:[address] 3.430.2.7 0.2.7.3.698 Ho spita .3.768910 084.8 l .8 2021-06-17 2021-06-17 Patient Mike, 1.2.840.1 [id number] 541 [id number] Methodi 00:00:00 00:00:00 Outreach [place] L [address]281.1.[address] 3.430.2.7 Hospit a .3.943063 l .8 2021-06-12 2021-06-12 Travel 1.2.840.1 1.2.624.874 4726 794322 Methodi 00:00:00 00:00:[address] 3.430.2.7 0.2.7.3.698 Ho spita .3.425135 084.8 l .8 2021-06-03 2021-06-03 Travel 1.2.840.1 1.2.777.736 7056 558821 Methodi 00:00:00 00:00:[address] 3.430.2.7 0.2.7.3.698 Ho spita .3.936757 084.8 l .8 2021-06-02 2021-06-02 Office [place], 1.2.840.1 [id number] 31899 Methodi 09:37:57 10:46:51 Visit Bernard 52690.1.[address] 3.430.2.7 Hospit a .3.272029 l .8 2021-05-08 2021-05-08 Refill Charli, 1.2.840.1 [id number] 25484 Methodi 00:00:00 00:00:[address] 3.430.2.7 Hospit a .3.974161 l .8 2021-04-29 2021-04-29 Refill [place], 1.2.840.1 [id number] 47791 Methodi 00:00:00 00:00:[address] 3.430.2.7 Hospit a .3.088382 l .8 2021-04-21 2021-04-21 Travel 1.2.840.1 1.2.858.606 4724 915498 Methodi 00:00:00 00:00:[address] 3.430.2.7 0.2.7.3.698 Ho spita .3.401803 084.8 l .8 2021-04-20 2021-04-20 Patient Mike, 1.2.840.1 [id number] 106 [id number] Methodi 00:00:00 00:00:00 Outreach Starr L 81293.1.[address] 3.430.2.7 Hospit a .3.788208 l .8 2021-04-20 2021-04-20 Patient Mike, 1.2.840.1 [id number] 327 [id number] Methodi 00:00:00 00:00:00 Outreach [place] L [address]47.1.[address] 3.430.2.7 Hospit a .3.337351 l .8 2021-04-13 2021-04-13 Refill Carefree, 1.2.840.1 [id number] 94712 44571 Methodi 00:00:00 00:00:[address] 3.430.2.7 Hospit a .3.728254 l .8 2021-04-12 2021-04-12 Refill Carefree, 1.2.840.1 [id number] 92312 Methodi 00:00:00 00:00:[address] 3.430.2.7 Hospit a .3.974331 l .8 2021-04-03 2021-04-03 Refill Charli, 1.2.840.1 [id number] 58868 Methodi 00:00:00 00:00:[address] 3.430.2.7 Hospit a .3.391673 l .8 2021-03-12 2021-03-12 Telephone Charli, 1.2.840.1 [id number] Methodi 00:00:00 00:00:[address] 3.430.2.7 Hospit a .3.514117 l .8 2021-03-12 2021-03-12 Travel 1.2.840.1 1.2.088.758 6003 724234 Methodi 00:00:00 00:00:[address] 3.430.2.7 0.2.7.3.698 Ho spita .3.240604 084.8 l .8 2021-02-11 2021-02-11 Refill Carefree, 1.2.840.1 [id number] 82798 Methodi 00:00:00 00:00:[address] 3.430.2.7 Hospit a .3.168963 l .8 2021-01-24 2021-01-24 Refill Carefree, 1.2.840.1 [id number] 70509 40309 Methodi 00:00:00 00:00:[address] 3.430.2.7 Hospit a .3.552320 l .8 2021-01-22 2021-01-22 Telephone Amilcar, 1.2.840.1 [id number] 2100 739208 Methodi 00:00:00 00:00:[address] 3.430.2.7 Hospit a .3.687029 l .8 2021-01-19 2021-01-19 Office Jones, 1.2.840.1 [id number] 4947 Methodi 11:02:39 11:43:22 Visit Ceci 55176.1.[address] Lorenzo 3.430.2.7 Hosp ilan .3.650757 l .8 2021-01-19 2021-01-19 Telephone Charli, 1.2.840.1 [id number] 045 [id number] Methodi 00:00:00 00:00:[address] 3.430.2.7 Hospit a .3.879469 l .8 2021-01-19 2021-01-19 Travel 1.2.840.1 1.2.675.909 2082 565252 Methodi 00:00:00 00:00:[address] 3.430.2.7 0.2.7.3.698 Ho spita .3.199687 084.8 l .8 2021-01-07 2021-01-07 Orders Carefree, 1.2.840.1 [id number] 57764 88407 Methodi 00:00:00 00:00:00 Only Bernard [address]58.1.[address] 3.430.2.7 Hospit a .3.009635 l .8 2021-01-05 2021-01-05 Office Carefree, 1.2.840.1 [id number] 72301 34745 Methodi 08:47:56 09:46:07 Visit Bernard 30340.1.[address] 3.430.2.7 Hospit a .3.277475 l .8 2021-01-05 2021-01-05 Travel 1.2.840.1 1.2.508.495 2783 273288 Methodi 00:00:00 00:00:[address] 3.430.2.7 0.2.7.3.698 Ho spita .3.148990 084.8 l .8 2020-12-29 2020-12-29 Office Jones, 1.2.840.1 [id number] 889800 0352 Methodi 13:27:08 14:04:53 Visit Ceci 81039.1.[address] Lorenzo 3.430.2.7 Hosp ilan .3.510463 l .8 2020-12-29 2020-12-29 Travel 1.2.840.1 1.2.032.827 3259 [id number] Methodi 00:00:00 00:00:[address] 3.430.2.7 0.2.7.3.698 Ho spita .3.300814 084.8 l .8 2020-12-23 2020-12-23 Telemedici Jones, 1.2.840.1 [id number] Methodi 11:06:14 11:13:24 ne Ceci 99982.1.[address] Lorenzo 3.430.2.7 Hosp ilan .3.283281 l .8 2020-12-22 2020-12-22 Nurse Dave, 1.2.840.1 [id number] 25183 Methodi 00:00:00 00:00:00 Triage Lili Gifford [address]252.1.[address] 3.430.2.7 Hospit a .3.721908 l .8 2020-10-28 2020-10-28 Office Mensah, 1.2.840.1 [id number] 7637 Methodi 07:56:09 09:09:15 Visit Benjamin 74098.1.[address] Garcia 3.430.2.7 Hospit a .3.171277 l .8 2020-10-28 2020-10-28 [facility] 1.2.840.1 1.2.030.679 7720 [id number] Methodi 00:00:00 00:00:00 15133.1.1 350.1.13.43 783 3.430.2.7 0.2.7.3.698 spita .3.664476 084.8 l .8 2020-10-06 2020-10-06 Outpatient CHARLI, [facility] [id number] 6393 Ozan 00:00:00 00:00:00 BERNARD [address] 2020-09-25 2020-09-25 Outpatient MENSAH, [facility] 694 [id number] 044 Ozan 00:00:00 00:00:00 BENJAMIN [address] 2020-09-17 2020-09-17 Outpatient [facility] [id number] 703 Ozan 00:00:00 00:00:[address] 2020-09-05 2020-09-05 Outpatient MENSAH, [facility] [id number] 471 Ozan 00:00:00 00:00:00 BENJAMIN [address] 2020-08-27 2020-08-27 Outpatient MENSAH, [facility] 098 [id number] 044 Ozan 00:00:00 00:00:00 BENJAMIN [address] 2020-08-11 2020-08-11 Outpatient MENSAH, [facility] [id number] 035 Ozan 00:00:00 00:00:00 BENJAMIN [address] 2020-07-28 2020-07-28 Outpatient CHARLI, [facility] [id number] 1459 Ozan 00:00:00 00:00:00 BERNARD [address] 2020-07-21 2020-07-21 Outpatient CHARLI, [facility] [id number] 2918 Ozan 00:00:00 00:00:00 BERNARD [address] 2020-06-30 2020-06-30 Outpatient CHARLI, [facility] [id number] 4970 Ozan 00:00:00 00:00:00 BERNARD [address] 2020-05-15 2020-05-15 Outpatient [facility] [id number] 594 Ozan 00:00:00 00:00:[address] 2020-04-21 2020-04-22 Emergency SCHAFERLING [facility] 064 2099 711132 Ozan 00:00:00 00:00:00 , NORMA 166 Method i 2020-03-31 2020-04-04 Inpatient BECKY, [facility] 064 [id number] 0049 Ozan 00:00:00 00:00:00 LEATHA 441 Method i 2020-04-02 2020-04-02 Outpatient COH [facility] PDPFECL ZPN COH 00:00:00 00:00:00 -[id number] 3 2020-03-20 2020-03-20 Outpatient CHARLI, [facility] [id number] 2709 Ozan 00:00:00 00:00:00 BERNARD 120 Method i 2020-03-20 2020-03-20 Outpatient [facility] [id number] 623 Ozan 00:00:00 00:00:00 172 Method i 2020-03-19 2020-03-19 Outpatient [facility] [id number] 603 Ozan 00:00:00 00:00:00 290 Method i Results Test Description Test Time Test Comments Results Result Comments Source POC urinalysis dipstick 2023-05-12 16:42:33 Test Item Value Reference Range Interpretation Comme nts Color urine, POC (test code = Yellow 0143360) Clarity urine, POC (test code = Clear 5263458) Glucose urine, POC (test code = 2+ Negative A 1128676) Bilirubin urine, POC (test code = Negative Negative 9504346) Ketones urine, POC (test code = Negative Negative 2514-8) Specific gravity urine, POC (test 1.010 1.005-1.030 code = 5811-5) Blood urine, POC (test code = Small Negative A 2866991) pH urine, POC (test code = 5.0 See_Comment [Automated message] The 5803-2) system which ge nerated this result transmit caden reference range: 5.0, 5.5 , 6.0, 6.5, 7.0, 7.5, 8.0, 8.5. The reference range was not used to interpret th is result as normal/abnormal . Protein urine, POC (test code = Negative Negative 18391-2) Urobilinogen urine, POC (test <2.0 See_Comment [Automated message] The code = 62238-1) system which generated this result transmit caden reference range: <=2.0. T he reference range was not u sed to interpret this result as normal/abnormal . Nitrite urine, POC (test code = Positive Negative A 5802-4) Leukocyte esterase urine, POC Moderate Negative A (test code = 4453384) Lab Interpretation (test code = Abnormal 16763-2) [facility] with reflex to culture 2023-03-11 16:11:00 Test Item Value Reference Range Interpretation Comments Specific gravity, >=1.030 1.005-1.030 A urine (test code = 5811-5) pH, urine (test code 6.0 5.0-7.5 = 5803-2) Color, UA (test code Yellow Yellow = 5778-6) Appearance (test code Clear Clear = 5767-9) WBC esterase, urine 1+ Negative A (test code = 5799-2) Protein, UA (test Negative Negative/Trace code = 66763-4) Glucose, urine (test 3+ Negative A code = 78842-6) Ketones, UA (test Negative Negative code = 2514-8) Occult blood, urine Trace Negative A (test code = 5794-3) Bilirubin, UA (test Negative Negative code = 5770-3) Urobilinogen, UA 0.2 mg/dL 0.2-1.0 (test code = 50187-4) Nitrite, UA (test Negative Negative code = 5802-4) Microscopic See below: Microscopic was examination (test indicated and was code = 62293-0) performed. Urinalysis reflex Comment This speci men has (test code = 2386) reflexed to a Urine Culture. RENÉE (test code = RENÉE) Performed at: [address] [place] [address] [id number] Director: Allen Biswas MD, Phone: [phone] Lab Interpretation Abnormal (test code = 28837-5) [facility] [id number] 16:11:00 Test Item Value Reference Range Interpretation Comments WBC, UA (test code = 08-25 See_Comment A [Autom ated 5821-4) message] The system which generated this result transmitted reference range : 0 - 5 /hpf. The reference range was not used to interpret this result as normal/abnormal . RBC, UA (test code = None seen See_Comment [Autom ated 72337-6) message] The system which generated this result transmitted reference range : 0 - 2 /hpf. The reference range was not used to interpret this result as normal/abnormal . Epithelial cells (non 0-10 See_Comment [Auto mated renal) (test code = message] The 5787-7) system which generated this result transmitted reference range : 0 - 10 /hpf. Th e reference range was not used to interpret this result as normal/abnormal . Casts (test code = None seen None seen /lpf 00279-1) Bacteria, UA (test Moderate None seen/Few A code = 5769-5) RENÉE (test code = RENÉE) Performed at: [facility] [id number] Director: Allen Biswas MD, Phone: [phone] Lab Interpretation Abnormal (test code = 36262-4) [facility] BLADDER SCAN/[id number] 16:39:08 Test Item Value Reference Range Interpretation Comments Total volume, urine (test code = 2338) 2ml [facility] metabolic [id number] 09:08:00 Test Item Value Reference Range Interpretation Comments Glucose (test code = 159 mg/dL 70-99 H 2345-7) BUN (test code = 19 mg/dL 8-27 3094-0) Creatinine (test code 1.23 mg/dL 0.57-1.00 H = 2160-0) eGFR (test code = 46 mL/min/1.73 See_Comment L [Automa caden 17075-5) message] The system which generated this result transmitted reference range : >=59. The reference range was not used to interpret this result as normal/abnormal . BUN/creatinine ratio 15 28 (test code = 3097-3) Sodium (test code = 141 mmol/L 181-303 0434-2) Potassium (test code 5.5 mmol/L 3.5-5.2 H = 2823-3) Chloride (test code = 104 mmol/L 96-106 2075-0) CO2 (test code = 20 mmol/L 20-29 8-9) Calcium (test code = 10.2 mg/dL 8.7-10.3 98885-7) RENÉE (test code = RENÉE) Performed at: 01 - [facility] [address] [place], [place] [id number] Director: Allen Biswas MD, Phone: [phone] Lab Interpretation Abnormal (test code = 19413-8) [facility] glycosylated hemoglobin (Hb A1C)2022-12-02 14:48:34 Test Item Value Reference Range Interpretation Comments POC Hemoglobin A1C (test code = 8.5 % 6773254) [facility] [id number] 17:36:00 Test Item Value Reference Range Interpretation Comments Pap smear, NILM NILM DIAGNOSIS: Nega tive for ThinPrep (test intraepitheli al lesion code = 204) or malignancy A DEQUACY: Satisfactory fo r evaluation / Endocervical/tr ansformat ion zone compon ent present. COMMEN T: This Pap smear was s creened with the assist ance of the Cyber[employer] nPrep(TM) Imaging System and screened by a cytotechnologis t. SPECIMEN SOURCE : Pap + Pap Dependent H PV, CERVICAL ENDOCE RVICAL VAGINAL CLINICA L INFORMATION: LM P: 09/26/2008 Pro vided Diagnosis Codes : Z12.4 Z12.4 Cervicova ginal cytology should be considered a sc reening procedure subje ct to false negatives and false positives . Results are more reliab le when a satisfactory sa mple is obtained on a r egular repetitive basi s, and should be inter preted together with p ast and current clinica l data. ELECTRONICALLY SIGNED BY: Screened By : MEAGAN East (ASCP ) Case Electronically Signed 10/30/2022 HPV, high-risk Not Detected Not Detected (test code = 28067-8) HPV 18 DNA (test Not Detected Not Detected code = 4361) HPV 16 DNA (test Not Detected Not Detected HPV High Ri sk DNA (Non code = 4360) 16/18) (1,2,3,4 ,5)HPV High Risk DNA T ype 18 (1,2,3,4,5)HPV High Risk DNA Type 16 (1,2,3,4,5)(1)T he rufino(R) HPV te st is FDA-cleared for ThinPrep(R) spe cimens and detects gen omic HPV DNA in the poly morphic L1 region in 14 subtypes: Type 16, Type 18, and other h igh risk types (31,33,35,39,45 ,51,52,56 ,58,59,66,68). The test has been modifi ed and validated for u se in SurePath(TM) specimens.(2)HP V types 16 and/or 18 th at were Not Detected we re undetectable or below the pre-set threshold.(3)Th e non-repeat rate for HPV genotyping assa ys varies from 5 to 15%. In the NILM cytology c ategory, there is a low positive predictive valu e (PPV = 15-20%) for BRYAN 2+ with a positive high r isk HPV result.(4)This test was evaluated and i ts performance characteristics determined by [facility]. It has not been cleared or appr panchito by the U.S. Food a nd Drug Administration. The FDA has determined that such clearance or ap proval is not necessary. [facility] is certified un tim the Clinical Labora tory Improvement Hiral ndments of 1987 (CLIA) as qualified to pe rform high complexity clinical testing. This t est is used for clinic al purposes. It sh ould not be regarded as investigational or for research.(5)Res ults should be inter preted together with p ast and current clinica l and laboratory data . [facility] urine [id number] 22:08:00 Test Item Value Reference Range Interpretation Comments Creatinine, 71.8 mg/dL Not Estab. urine (mg/dL) (test code = 2161-8) Albumin, urine 4.6 ug/mL Not Estab. (test code = 00935-9) Microalbumin/cr 6 See_Comment Normal: 0 - 29 eatinine ratio Moderately (test code = increased: 30 - 300 9318-7) Severely increa sed: >300 [Automated message] The sy stem which generated this result transmit caden reference range : 0 - 29 mg/g creat. The reference range was not used to interpret this result as normal/abnormal . RENÉE (test code Performed at: 01 - = RENÉE) [facility] [address] [place], [place] [id number] Director: Allen Biswas MD, Phone: [phone] [facility] [id number] 13:12:00 Test Item Value Reference Range Interpretation Comments Glucose (test code = 126 mg/dL 65-99 H 2345-7) BUN (test code = 21 mg/dL 8-27 3094-0) Creatinine (test code 1.15 mg/dL 0.57-1.00 H = 2160-0) eGFR (test code = 51 mL/min/1.73 See_Comment L [Automa caden 8257) message] The system which generated this result transmitted reference range : >=59. The reference range was not used to interpret this result as normal/abnormal . BUN/creatinine ratio 18 12-28 (test code = 3097-3) Sodium (test code = 135 mmol/L 666-436 3695-2) Potassium (test code 5.2 mmol/L 3.5-5.2 = 2823-3) Chloride (test code = 102 mmol/L 96-106 2075-0) CO2 (test code = 19 mmol/L 20-29 L 8-9) Calcium (test code = 9.7 mg/dL 8.7-10.3 07290-0) Protein (test code = 7.1 g/dL 6.0-8.5 2885-2) Albumin, S (test code 4.4 g/dL 3.7-4.7 = 1751-7) Globulin, total (test 2.7 g/dL 1.5-4.5 code = 55238-7) Albumin/globulin 1.6 1.2-2.2 ratio (test code = 1759-0) Total bilirubin (test 0.5 mg/dL 0.0-1.2 code = 1975-2) Alkaline phosphatase 93 See_Comment [Autom ated (test code = 6768-6) message ] The system which generated this result transmitted reference range : 44 - 121 IU/L. The reference range was not used to interpr et this result as normal/abnormal . AST (test code = 19 See_Comment [Automated 1920-04) message] The system which generated this result transmitted reference range : 0 - 40 IU/L. Th e reference range was not used to interpret this result as normal/abnormal . ALT (test code = 20 See_Comment [Automated 1742-02) message] The system which generated this result transmitted reference range : 0 - 32 IU/L. Th e reference range was not used to interpret this result as normal/abnormal . RENÉE (test code = RENÉE) Performed at: [address] [place] [id number] Director: Allen Biswas MD, Phone: [phone] Lab Interpretation Abnormal (test code = 19862-3) [facility] CenterLipid [id number] 13:12:00 Test Item Value Reference Range Interpretation Comments Cholesterol (test 141 mg/dL 100-199 code = 2093-3) Triglycerides (test 160 mg/dL 0-149 H code = 2571-8) HDL cholesterol (test 61 mg/dL See_Comment [Auto mated code = 2085-9) message] The system which generated this result transmitted reference range : >=39. The reference range was not used to interpret this result as normal/abnormal . VLDL cholesterol fazal 27 mg/dL 5-40 (test code = 89418-9) LDL Chol Calc ([facility]) 53 mg/dL 0-99 (test code = 70185-4) Non-HDL cholesterol 80 mg/dL 0-129 (test code = 77663-4) RENÉE (test code = RENÉE) Performed at: [address] [place] [address] [id number] Director: Allen Biswas MD, Phone: [phone] Lab Interpretation Abnormal (test code = 75075-7) [facility] CenterCB with platelet and [id number] 03:07:00 Test Item Value Reference Range Interpretation Comments WBC (test code = 8.0 See_Comment [Automated 3715-2) message] The system which generated this result transmit caden reference range : 3.4 - 10.8 x10E3/uL. The reference range was not used to interpret this result as normal/abnormal . RBC (test code = 4.57 See_Comment [Automated 144-8) message] The system which generated this result transmit caden reference range : 3.77 - 5.28 x10E6/uL. The reference range was not used to interpret this result as normal/abnormal . HGB (test code = 13.8 g/dL 11.1-15.9 718-7) HCT (test code = 41.4 % 34.0-46.6 4544-3) MCV (test code = 91 fL 79-97 787-2) MCH (test code = 30.2 pg 26.6-33.0 785-6) MCHC (test code = 33.3 g/dL 31.5-35.7 786-4) RDW (test code = 12.8 % 11.7-15.4 788-0) Platelet count 269 See_Comment [Automated (test code = 777-3) message] The system which generated this result transmit caden reference range : 150 - 450 x10E3/uL. The reference range was not used to interpret this result as normal/abnormal . Neutrophils (test 54 % Not Estab. code = 770-8) Lymphocytes (test 36 % Not Estab. code = 736-9) Monocytes (test 9 % Not Estab. code = 5905-5) Eosinophils (test 1 % Not Estab. code = 713-8) Basophils (test 0 % Not Estab. code = 706-2) Neutrophils, 4.3 See_Comment [Automated absolute (test code message] The = 751-8) system which generated this result transmit caden reference range : 1.4 - 7.0 x10E3/uL. The reference range was not used to interpret this result as normal/abnormal . Lymphocytes, 2.9 See_Comment [Automated absolute (test code message] The = 731-0) system which generated this result transmit caden reference range : 0.7 - 3.1 x10E3/uL. The reference range was not used to interpret this result as normal/abnormal . Monocytes, absolute 0.7 See_Comment [Automa caden (test code = 742-7) message] The system which generated this result transmit caden reference range : 0.1 - 0.9 x10E3/uL. The reference range was not used to interpret this result as normal/abnormal . Eosinophils, 0.1 See_Comment [Automated absolute (test code message] The = 711-2) system which generated this result transmit caden reference range : 0.0 - 0.4 x10E3/uL. The reference range was not used to interpret this result as normal/abnormal . Basophils, absolute 0.0 See_Comment [Automa caden (test code = 704-7) message] The system which generated this result transmit caden reference range : 0.0 - 0.2 x10E3/uL. The reference range was not used to interpret this result as normal/abnormal . Immature 0 % Not Estab. granulocytes (test code = 63309-2) Immature 0.0 See_Comment [Automated granulocytes, message] The absolute (test code [facility] = 22378-6) generated this result transmit caden reference range : 0.0 - 0.1 x10E3/uL. The reference range was not used to interpret this result as normal/abnormal . RENÉE (test code = Performed at: RENÉE) - [facility] [address] [id number] Director: Allen Biswas MD, Phone: [phone] [facility] glycosylated hemoglobin (Hb A1C)2021-09-01 17:10:00 Test Item Value Reference Range Interpretation Comments POC Hemoglobin A1C (test code = 7.7 % 9336765) [facility] metabolic [id number] 09:07:00 Test Item Value Reference Interpretation Comments Range Glucose (test code = 107 mg/dL 65-99 H 2345-7) BUN (test code = 16 mg/dL - 3094-0) Creatinine (test 0.99 mg/dL 0.57-1.00 code = 2160-0) EGFR Non-Afr. 58 mL/min/1.73 >59 L [place] (test code = 2775) EGFR 66 mL/min/1.73 >59 In accordan ce with [place] (test code recommen dations from = 2774) the NKF-ASN Tas k force, [facility] is in the process of updating its eG FR calculation to the 2020 CKD-EPI creatinine equa tion that estimates kidney function without a race variable. BUN/creatinine ratio 09-22 (test code = 3097-3) Sodium (test code = 140 mmol/L 808-650 0536-2) Potassium (test code 5.0 mmol/L 3.5-5.2 = 2823-3) Chloride (test code 104 mmol/L 96-106 = 2075-0) CO2 (test code = 21 mmol/L -29 2027-) Calcium (test code = 9.9 mg/dL 8.7-10.3 87472-6) RENÉE (test code = Performed at: RENÉE) - [facility] [id number] Director: Allen Biswas MD, Phone: [phone] Lab Interpretation Abnormal (test code = 37859-8) [facility] / creatinine urine [id number] 22:08:00 Test Item Value Reference Range Interpretation Comments Creatinine, 94.6 mg/dL Not Estab. urine, random (test code = 2161-8) Albumin, urine 8.6 ug/mL Not Estab. (test code = 12617-2) Microalbumin/cr See_Comment Normal: 0 - 29 eatinine ratio Moderately (test code = increased: 30 - 300 9318-7) Severely increa sed: >300 [Automated message] The sy stem which generated this result transmit caden reference range : 0 - 29 mg/g creat. The reference range was not used to interpret this result as normal/abnormal . RENÉE (test code Performed at: - RENÉE) [facility] [id number] Director: Allen Biswas MD, Phone: [phone] [facility] CenterHepatitis C [id number] 13:10:00 Test Item Value Reference Range Interpretation Comments Hepatitis C Ab See_Comment Negative: < 0.8 (test code = Indeterminate: 0.8 - 31050-2) 0.9 Positive: > 0.9 The CDC recomme nds that a positive HCV antibody result be followed up wit h a HCV Nucleic Aci d Amplification t est (222318). [Auto mated message] The sy stem which generated this result transmit caden reference range : 0.0 - 0.9 s/co rati o. The reference r juan was not used to interpret this result as normal/abnormal . RENÉE (test code = Performed at: RENÉE) - [facility] [id number] Director: Allen Biswas MD, Phone: [phone] [facility] CenterHemoglobin [id number] 12:13:00 Test Item Value Reference Range Interpretation Comments Hemoglobin A1C (test 8.3 % 4.8-5.6 H Predia betes: code = 4548-4) 5.7 - 6.4 Diabetes: >6.4 Glycemic control for adults with diabetes: <7.0 RENÉE (test code = RENÉE) Performed at: [facility] [address] [id number] Director: Allen Biswas MD, Phone: [phone] Lab Interpretation Abnormal (test code = 00795-2) [facility] CenterHIV 1/2 ANTIGEN/ANTIBODY, FOURTH GENERATION [id number] 12:13:00 Test Item Value Reference Range Interpretation Comments HIV AG/AB 4th gen Non Reactive Non Reactive (test code = 68145-0) RENÉE (test code = Performed at: RENEÉ) [facility] [address] [id number] Director: Allen Biswas MD, Phone: [phone] [facility] metabolic [id number] 08:07:00 Test Item Value Reference Interpretation Comments Range Glucose (test code = 148 mg/dL 65-99 H 2345-7) BUN (test code = 20 mg/dL 8- 3094-0) Creatinine (test 1.30 mg/dL 0.57-1.00 H code = 2160-0) EGFR Non-Afr. 41 mL/min/1.73 >59 L [place] (test code = 2775) EGFR 48 mL/min/1.73 >59 L [facility] cur rently [place] (test code reports eGFR in = 2774) compliance with the current recommendations of the [employer]. Lab macarena will update reporting as ne w guidelines are published from the NKF-ASN Task fo rce. BUN/creatinine ratio 12-28 (test code = 3097-3) Sodium (test code = 140 mmol/L 491-343 2810-2) Potassium (test code 5.2 mmol/L 3.5-5.2 = 2823-3) Chloride (test code 103 mmol/L 96-106 = 2075-0) CO2 (test code = 23 mmol/L 20-29 2027-9) Calcium (test code = 10.3 mg/dL 8.7-10.3 60829-3) Protein (test code = 7.2 g/dL 6.0-8.5 2885-2) Albumin, S (test 4.7 g/dL 3.7-4.7 code = 1751-7) Globulin, total 2.5 g/dL 1.5-4.5 (test code = 31778-6) Albumin/globulin 1.2-2.2 ratio (test code = 1759-0) Total bilirubin 0.5 mg/dL 0.0-1.2 (test code = 1975-2) Alkaline phosphatase See_Comment Effec tive (test code = 6768-6) Septemb er 2020 Alkaline Phosphatase reference inter delfino will be benitez guaman to: Age Male Female 0 - 5 days 47 - 127 47 - 127 6 - 10 days 29 - 242 29 - 242 11 - 20 days 109 - 357 109 - 357 21 - 30 day s 94 - 494 94 - 494 1 - 2 months 149 - 53 9 149 - 539 3 - 6 mon ths 131 - 452 131 - 452 7 - 11 months 1 17 - 401 117 - 401 1 2 months - 6 year s 158 - 369 158 - 369 7 - 12 years 150 - 409 150 - 409 13 ye ars 156 - 435 78 - 227 14 years 114 - 375 64 - 161 15 yea rs 88 - 279 56 - 134 16 years 74 - 207 51 - 121 17 years 63 - 161 47 - 113 18 - 20 years 51 - 125 42 - 106 >20 years 4 4 - 121 44 - 121 [Automated mess age] The system R&V generated this result transmit caden reference range : 48 - 121 IU/L. The reference range was not used to interpret this result as normal/abnormal . AST (test code = See_Comment [Automated message] 1920-8) The system R&V generated this result transmit caden reference range : 0 - 40 IU/L. The reference range was not used to interpret this result as normal/abnormal . ALT (test code = See_Comment [Automated message] 1742-6) The system R&V generated this result transmit caden reference range : 0 - 32 IU/L. The reference range was not used to interpret this result as normal/abnormal . RENÉE (test code = Performed at: RENÉE) - [facility] [id number] [place], [place] [id number] Director: Allen Biswas MD, Phone: [phone] Lab Interpretation Abnormal (test code = 31365-7) [id number]:07:00 Test Item Value Reference Range Interpretation Comments Cholesterol (test code = 169 mg/dL 549-187 7786-3) Triglycerides (test code 134 mg/dL 0-149 = 2571-8) HDL cholesterol (test 70 mg/dL >39 code = 2085-9) VLDL cholesterol fazal 23 mg/dL 5-40 (test code = 22785-9) LDL Chol Calc ([facility]) 76 mg/dL 0-99 (test code = 37885-6) Non-HDL cholesterol 99 mg/dL 0-129 (test code = 73920-4) RENÉE (test code = RENÉE) Performed at: [address] [id number] Director: Allen Biswas MD, Phone: [phone] [address] [id number] 08:07:00 Test Item Value Reference Range Interpretation Comments T4, free (test code 1.25 ng/dL 0.82-1.77 = 3024-7) RENÉE (test code = Performed at: RENÉE) [facility] [id number] Director: Allen Biswas MD, Phone: [phone] [facility] stimulating [id number] 08:07:00 Test Item Value Reference Range Interpretation Comments TSH (test code See_Comment [Automated m essage] = 56370-7) The system ic h generated this result transmit caden reference range : 0.450 - 4.500 uIU/mL. The reference range was not used to interpret this result as normal/abnormal . RENÉE (test code Performed at: - = RENÉE) [address] [id number] Director: Allen Biswas MD, Phone: [phone] [facility] with platelet and [id number] 08:07:00 Test Item Value Reference Range Interpretation Comments WBC (test code = See_Comment [Automated 2190-2) message] The system which generated this result transmit caden reference range : 3.4 - 10.8 x10E3/uL. The reference range was not used to interpret this result as normal/abnormal . RBC (test code = See_Comment [Automated 119-8) message] The system which generated this result transmit caden reference range : 3.77 - 5.28 x10E6/uL. The reference range was not used to interpret this result as normal/abnormal . HGB (test code = 15.0 g/dL 11.1-15.9 718-7) HCT (test code = 46.5 % 34.0-46.6 4544-3) MCV (test code = 93 fL 79-97 787-2) MCH (test code = 29.9 pg 26.6-33.0 785-6) MCHC (test code = 32.3 g/dL 31.5-35.7 786-4) RDW (test code = 12.5 % 11.7-15.4 788-0) Platelet count See_Comment [Automated (test code = 777-3) message] The system which generated this result transmit caden reference range : 150 - 450 x10E3/uL. The reference range was not used to interpret this result as normal/abnormal . Neutrophils (test 54 % Not Estab. code = 770-8) Lymphocytes (test 35 % Not Estab. code = 736-9) Monocytes (test 9 % Not Estab. code = 5905-5) Eosinophils (test 1 % Not Estab. code = 713-8) Basophils (test 0 % Not Estab. code = 706-2) Neutrophils, See_Comment [Automated absolute (test code message] The = 751-8) system which generated this result transmit caden reference range : 1.4 - 7.0 x10E3/uL. The reference range was not used to interpret this result as normal/abnormal . Lymphocytes, See_Comment [Automated absolute (test code message] The = 731-0) system which generated this result transmit caden reference range : 0.7 - 3.1 x10E3/uL. The reference range was not used to interpret this result as normal/abnormal . Monocytes, absolute See_Comment [Automa caden (test code = 742-7) message] The system which generated this result transmit caden reference range : 0.1 - 0.9 x10E3/uL. The reference range was not used to interpret this result as normal/abnormal . Eosinophils, See_Comment [Automated absolute (test code message] The = 711-2) system which generated this result transmit caden reference range : 0.0 - 0.4 x10E3/uL. The reference range was not used to interpret this result as normal/abnormal . Basophils, absolute See_Comment [Automa caden (test code = 704-7) message] The system which generated this result transmit caden reference range : 0.0 - 0.2 x10E3/uL. The reference range was not used to interpret this result as normal/abnormal . Immature 1 % Not Estab. granulocytes (test code = 14701-1) Immature grans See_Comment [Automated (abs) (test code = message] The 59731-3) system which generated this result transmit caden reference range : 0.0 - 0.1 x10E3/uL. The reference range was not used to interpret this result as normal/abnormal . RENÉE (test code = Performed at: RENÉE) - [facility] [address] [id number] Director: Allen Biswas MD, Phone: [phone] [facility] coronavirus 2 RNA [Presence] in Respiratory specimen by OLIVER with probe [id number] 15:59:55 Test Item Value Reference Range Interpretation Comments SARS coronavirus 2 RNA [Presence] in Detected Not-Detected Respiratory specimen by OLIVER with probe detection (test code = 19205-3) [facility]
[2023-05-16] MEDS ORDERED: NA CHLORIDE 0.9% 1,000 ML ONE (21:26)
[2023-05-16] MEDS ORDERED: ACETAMINOPHEN 325 MG TABLET ONE (21:31)
[2023-05-16 21:47] LABS: Absolute Lymphocytes (CBC) 1.1 K/uL (0.7-4.9); Hematocrit 37.9 % (36.0-45.0); Lymphocytes % 8.8 % (15.3-44.8); MCV 92.2 fL (80-100); MPV 9.5 fL (7.6-11.3); Platelets 224 thou/uL (152-406); RBC Red Blood Cell Count 4.12 M/uL (3.86-4.86)
--- NOTE | 2023-05-16 21:49 | RAD REPORT ---
EXAM DESCRIPTION: Anita Single View05/16/2023 9:24 pm CLINICAL HISTORY: Fever COMPARISON: none FINDINGS: A few areas of subsegmental atelectasis are present mid left lung. The remainder of the lungs appear clear of acute infiltrate. The heart is normal size
[2023-05-16 21:55] LABS: Specific Gravity > 1.030 (1.005-1.030); Urine Bacteria None Seen /HPF (<20); Urine Bilirubin NEGATIVE (Negative); Urine Blood Negative (Negative); Urine Clarity Clear (Clear); Urine Color Light-Yellow (Yellow); Urine Glucose 4+ (Over) (Negative); Urine Mucus Slight /HPF (None Seen); Urine Protein TRACE (Negative); Urine RBC <5 /HPF (None Seen); Urine Urobilinogen Normal (Normal); Urine pH 5.5 (5.0-7.0)
[2023-05-16 21:57] LABS: Albumin 3.2 g/dL (3.4-5.0); Bilirubin Total 0.9 mg/dL (0.2-1.0); Potassium 4.2 mEq/L (3.5-5.1); Protein, Total 7.9 g/dL (6.4-8.2)
--- NOTE | 2023-05-16 22:22 | ER ---
Nurse's Notes [facility] Name: Nola Yip Age: 72 yrs Sex: Female : 1950 Arrival Date: 05/16/2023 Time: 20:45 Bed 7 Private MD: Diagnosis: Influenza type B, fever Presentation: 05/16 21:05 Chief complaint: Patient states: bladder procedure scheduled for last lg3 postponed due to UTI. started ABX but its not getting any better. Coronavirus screen: Client denies travel out of the [place] in the last 14 days. At this time, the client does not indicate any symptoms associated with coronavirus-19. Ebola Screen: No symptoms or risks identified at this time. Initial Sepsis Screen: Does the patient meet any 2 criteria? No. Patient's initial sepsis screen is negative. Does the patient have a suspected source of infection? No. Patient's initial sepsis screen is negative. Risk Assessment: Do you want to hurt yourself or someone else? Patient reports no desire to harm self or others. Onset of symptoms is unknown. 21:05 Method Of Arrival: Ambulatory lg3 21:05 Acuity: KARINA 3 lg3 Triage Assessment: 21:07 General: Appears in no apparent distress. uncomfortable, Behavior is calm, cooperative. lg3 Pain: Denies pain. EENT: No deficits noted. No signs and/or symptoms were reported regarding the EENT system. Neuro: No deficits noted. Minor Agitation-Sedation Scale (RASS): 0 - Alert and Calm Level of Consciousness is awake, alert, obeys commands, Oriented to person, place, time, situation. Cardiovascular: No deficits noted. Denies chest pain, shortness of breath, Capillary refill < 3 seconds Clubbing of nail beds is absent JVD is absent Patient's skin is warm and dry. Respiratory: No deficits noted. Airway is patent Respiratory effort is even, unlabored, Respiratory pattern is regular, symmetrical. GI: No deficits noted. Abdomen is round non-distended, obese. : Reports burning with urination, urinary frequency. Derm: No deficits noted. No signs and/or symptoms reported regarding the dermatologic system. Skin is intact, is healthy with good turgor, Skin is dry, Skin is normal, Skin temperature is warm. Musculoskeletal: No deficits noted. No signs and/or symptoms reported regarding the musculoskeletal system. Circulation, motion, and sensation intact. Range of motion: intact in all extremities. Historical: - Allergies: 21:07 No Known Allergies; lg3 - PMHx: 21:07 Diabetes mellitus; Hypothyroidism; Hypertensive disorder; Hypercholesterolemia; chronic lg3 UTI's; - PSHx: 21:07 section; Cholecystectomy; partial hysterectomy; bilateral eye lid lifts; lg3 - Immunization history:: Adult Immunizations up to date, Client reports receiving the 2nd dose of the Covid vaccine, Flu vaccine is up to date. - Social history:: Smoking status: Patient denies any tobacco usage or history of. Patient/guardian denies using alcohol, street drugs. Screenin:[facility] ED Fall Risk Assessment (Adult) History of falling in the last 3 months, lg3 including since admission No falls in past 3 months (0 pts). Abuse screen: Denies threats or abuse. Denies injuries from another. Nutritional screening: No deficits noted. Tuberculosis screening: No symptoms or risk factors identified. Assessment: 21:10 General: see triage assessment . lg3 21:59 Reassessment: Patient appears in no apparent distress at this time. No changes from jw7 previously documented assessment. Patient and/or family updated on plan of care and expected duration. Pain level reassessed. Patient is alert, oriented x 3, equal unlabored respirations, skin warm/dry/pink. 22:33 General: Appears in no apparent distress. Behavior is calm, cooperative. Pain: Denies kd3 pain. Neuro: Level of Consciousness is awake, alert, obeys commands, Oriented to person, place, time, situation. Cardiovascular: Patient's skin is warm and dry. Respiratory: Airway is patent Trachea midline Respiratory effort is even, unlabored, Respiratory pattern is regular, symmetrical. Vital Signs: 21:00 BP 129 / 76; Pulse 89; Resp 18 S; Pulse Ox 91% on R/A; jw7 21:05 BP 129 / 76; Pulse 100; Resp 16 S; Temp 100.4(O); Pulse Ox 91% on R/A; Weight 78.93 kg lg3 (R); Height 5 ft. 3 in. (R); 21:59 BP 123 / 63; Pulse 86; Resp 18; Pulse Ox 90% on R/A; jw7 22:32 BP 123 / 63; Pulse 86; Resp 18; Pulse Ox 93% on R/A; kd3 22:32 Temp 98.6(O); kd3 21:05 Body Mass Index 30.82 (78.93 kg, 160.02 cm) lg3 ED Course: 20:48 Patient arrived in ED. mr 20:54 Luz Lopez MD is Attending Physician. sp3 21:07 Triage completed. lg3 21:07 Arm band placed on right wrist. lg3 21:10 Tiesha Rodriguez RN is Primary Nurse. jw7 21:10 Patient has correct armband on for positive identification. Placed in gown. Bed in low lg3 position. Call light in reach. Side rails up X 1. Client placed on continuous cardiac and pulse oximetry monitoring. NIBP monitoring applied. Door closed. Noise minimized. Warm blanket given. Family accompanied patient. 21:26 CXR XRAY In Process Unspecified. EDMS 21:39 Initial lab(s) drawn, by al, sent to lab. Urine collected: clean catch specimen, jw7 cloudy, COVID swab sent to lab. Flu and/or RSV swab sent to lab. Inserted saline lock: 20 gauge in right antecubital area, using aseptic technique. Blood collected. 21:40 Flu Sent. jw7 21:40 SARS-COV-2 RT PCR Sent. jw7 21:40 CBC with Diff Sent. jw7 21:40 CMP Sent. jw7 21:40 Lipase Sent. jw7 21:40 Urinalysis w/ reflexes Sent. jw7 22:32 Provided Education on: . kd3 22:32 No provider procedures requiring assistance completed. IV discontinued, intact, kd3 bleeding controlled, No redness/swelling at site. Pressure dressing applied. Administered Medications: 21:40 Drug: NS 0.9% IV 1000 ml Route: IV; Rate: 1 bolus; Site: right antecubital; jw7 22:33 Follow up: IV Status: Completed infusion kd3 21:40 Not Given (Pt took OTC Acetaminophen 1000mg at 1999): Acetaminophen PO 650 mg PO once jw7 Medication: 22:33 VIS not applicable for this client. kd3 Outcome: 22:21 Discharge ordered by . sp3 22:32 Discharged to home ambulatory. kd3 22:32 Condition: stable 22:32 Discharge instructions given to patient, family, Instructed on discharge instructions, follow up and referral plans. Demonstrated understanding of instructions, follow-up care. 22:34 Patient left the ED. kd3 Signatures: Dispatcher [employer] Natacha Copeland RafiqNisreen, RN RN lg3 Luz Lopez MD MD sp3 Akanksha Read RN RN kd3 Tiesha Rodriguez RN RN jw7
--- NOTE | 2023-05-16 22:22 | EDPHYS ---
Physician Documentation [facility] Name: Nola Yip Age: 72 yrs Sex: Female : 1950 Arrival Date: 05/16/2023 Time: 20:45 Bed 7 Private MD: ED Physician Luz Lopez HPI: 05/16 21:13 This 72 yrs old Female presents to ER via Ambulatory with complaints of sp3 Urinary Problem, Fever. 21:13 72-year-old female with history of diabetes, hypertension and recent UTI currently on sp3 Macrobid now presents to the ED for continued fever and body aches. Patient states that she believes there may be a secondary process going on. She states she has not had urinary frequency or dysuria. She does complain of body aches and general fatigue. There are no other specific symptoms including headache, neck pain, URI symptoms, chest pain, shortness of breath, rash, nausea, vomiting, diarrhea or any other concerning findings on review of systems at this time.. Historical: - Allergies: 21:07 No Known Allergies; lg3 - PMHx: 21:07 Diabetes mellitus; Hypothyroidism; Hypertensive disorder; Hypercholesterolemia; chronic lg3 UTI's; - PSHx: 21:07 section; Cholecystectomy; partial hysterectomy; bilateral eye lid lifts; lg3 - Immunization history:: Adult Immunizations up to date, Client reports receiving the 2nd dose of the Covid vaccine, Flu vaccine is up to date. - Social history:: Smoking status: Patient denies any tobacco usage or history of. Patient/guardian denies using alcohol, street drugs. ROS: 21:14 Eyes: Negative for injury, pain, redness, and discharge, ENT: Negative for injury, sp3 pain, and discharge, Neck: Negative for injury, pain, and swelling, Cardiovascular: Negative for chest pain, palpitations, and edema, Respiratory: Negative for shortness of breath, cough, wheezing, and pleuritic chest pain, Abdomen/GI: Negative for abdominal pain, nausea, vomiting, diarrhea, and constipation, Back: Negative for injury and pain, MS/Extremity: Negative for injury and deformity, Neuro: Negative for headache, weakness, numbness, tingling, and seizure. 21:14 All other systems are negative. Exam: 21:14 Constitutional: This is a well developed, well nourished patient who is awake, alert, sp3 and in no acute distress. Head/Face: Normocephalic, atraumatic. Eyes: Pupils equal round and reactive to light, extra-ocular motions intact. Lids and lashes normal. Conjunctiva and sclera are non-icteric and not injected. Cornea within normal limits. Periorbital areas with no swelling, redness, or edema. Neck: Trachea midline, no thyromegaly or masses palpated, and no cervical lymphadenopathy. Supple, full range of motion without nuchal rigidity, or vertebral point tenderness. No Meningismus. Chest/axilla: Normal chest wall appearance and motion. Nontender with no deformity. No lesions are appreciated. Cardiovascular: Regular rate and rhythm with a normal S1 and S2. No gallops, murmurs, or rubs. Normal PMI, no JVD. No pulse deficits. Respiratory: Lungs have equal breath sounds bilaterally, clear to auscultation and percussion. No rales, rhonchi or wheezes noted. No increased work of breathing, no retractions or nasal flaring. Abdomen/GI: Soft, non-tender, with normal bowel sounds. No distension or tympany. No guarding or rebound. No evidence of tenderness throughout. Skin: Warm, dry with normal turgor. Normal color with no rashes, no lesions, and no evidence of cellulitis. MS/ Extremity: Pulses equal, no cyanosis. Neurovascular intact. Full, normal range of motion. Neuro: Awake and alert, GCS 15, oriented to person, place, time, and situation. Cranial nerves II-XII grossly intact. Motor strength 5/5 in all extremities. Sensory grossly intact. Cerebellar exam normal. Normal gait. Psych: Awake, alert, with orientation to person, place and time. Behavior, mood, and affect are within normal limits. Vital Signs: 21:00 BP 129 / 76; Pulse 89; Resp 18 S; Pulse Ox 91% on R/A; jw7 21:05 BP 129 / 76; Pulse 100; Resp 16 S; Temp 100.4(O); Pulse Ox 91% on R/A; Weight 78.93 kg lg3 (R); Height 5 ft. 3 in. (R); 21:59 BP 123 / 63; Pulse 86; Resp 18; Pulse Ox 90% on R/A; jw7 22:32 BP 123 / 63; Pulse 86; Resp 18; Pulse Ox 93% on R/A; kd3 22:32 Temp 98.6(O); kd3 21:05 Body Mass Index 30.82 (78.93 kg, 160.02 cm) lg3 MDM: 21:04 Patient medically screened. sp3 21:14 Data reviewed: vital signs, nurses notes, old medical records, lab test result(s), sp3 radiologic studies. ED course: 72-year-old female with subjective fever body aches and vague symptoms. We will recheck urinalysis to assess for UTI. Other possibilities include viral syndrome, influenza, COVID-19, pneumonia, among others. The patient is not septic or in shock and is in no acute distress at this time. Temp is 100.4 we will give Tylenol as well.. 22:20 ED course: Urinalysis demonstrates no significant findings. Influenza type B is sp3 positive. Chest x-ray is negative. We will safely discharge patient home with general precautions and viral syndrome diagnosis.. 05/16 21:05 Order name: CBC with Diff; Complete Time: 21:54 sp3 05/16 21:05 Order name: CMP; Complete Time: 22:19 sp3 05/16 21:05 Order name: Lipase; Complete Time: 22:19 sp3 05/16 21:05 Order name: Urinalysis w/ reflexes; Complete Time: 22:19 sp3 05/16 21:05 Order name: SARS-COV-2 RT PCR; Complete Time: 22:19 sp3 05/16 21:05 Order name: Flu; Complete Time: 22:19 sp3 05/16 21:16 Order name: CXR XRAY; Complete Time: 21:54 sp3 05/16 21:05 Order name: IV Saline Lock; Complete Time: 21:40 sp3 05/16 21:05 Order name: Labs collected and sent; Complete Time: 21:40 sp3 Administered Medications: 21:40 Drug: NS 0.9% IV 1000 ml Route: IV; Rate: 1 bolus; Site: right antecubital; jw7 22:33 Follow up: IV Status: Completed infusion kd3 21:40 Not Given (Pt took OTC Acetaminophen 1000mg at 1999): Acetaminophen PO 650 mg PO once jw7 Disposition Summary: 05/16/23 22:21 Discharge Ordered Location: Home sp3 Condition: Stable sp3 Diagnosis - Influenza type B, fever sp3 Followup: sp3 - With: Private Physician - When: Upon discharge from the Emergency Department - Reason: Continuance of care Discharge Instructions: - Discharge Summary Sheet sp3 - Influenza, Adult sp3 Forms: - Medication Reconciliation Form sp3 - Thank You Letter sp3 - Antibiotic Education sp3 - Prescription Opioid Use sp3 - Patient Portal Instructions sp3 - Leadership Thank You Letter sp3 Signatures: Dispatcher [employer] Nisreen Qureshi, RN RN lg3 Luz Lopez MD MD sp3 Tiesha Rodriguez RN RN jw7 Akanksha Read RN kd3
[2023-05-16 23:00] VITALS: BP 123/63
[2023-05-16 23:06] VITALS: TEMP 98.6; O2SAT 93
== END 2023-05-16 22:34 | disposition home or self-care (01) ==
LOC: ER 20:45
DX: J10.1 Influenza due to other identified influenza virus with other respiratory manifestations (principal); Z20.822 Contact with and (suspected) exposure to COVID-19; E11.9 Type 2 diabetes mellitus without complications; I10 Essential (primary) hypertension
CPT/HCPCS: 85025; 81001; 36415; 83690; 80053; 87635; 87804 ×2; 71045; 96360; 99284; J7030